=== PATIENT | female | born 1945 | race Caucasian/White ===

== ENCOUNTER 2019-11-09 10:50 | Outpatient (CLI) | payer MEDICARE, MEDICAID ==
[2020-08-27] MEDS ORDERED: LISI2.5T14 PO (11:38)
[2020-08-27] MEDS ORDERED: FURO-149 PO (11:38)
[2020-08-27] MEDS ORDERED: VALA10002 PO (11:38)
[2020-08-27] MEDS ORDERED: DICY20TA12 PO (11:38)
[2020-08-27] MEDS ORDERED: POTA8TAB3 PO (11:38)
[2020-08-27] MEDS ORDERED: NITR1PAT25 TD (11:38)
[2020-08-27] MEDS ORDERED: ACET-3067 PO (11:38)
[2020-08-27] MEDS ORDERED: ASPI-100 PO (11:38)
[2020-08-27] MEDS ORDERED: ATEN-27 PO (11:38)
[2020-08-27] MEDS ORDERED: UBID50TA3 PO (11:38)
[2020-08-27] MEDS ORDERED: NITR0.4T51 SL (11:38)
[2020-08-27] MEDS ORDERED: GABA600T PO (11:38)
[2020-08-27] MEDS ORDERED: CYCL-1 PO (11:38)
[2020-08-27] MEDS ORDERED: TRAM50TA2 PO (11:38)
[2020-08-27] MEDS ORDERED: LINA72CA PO (11:38)
[2020-11-08 12:36] LABS: BASOPHILS % (AUTO) 0 % (0-1); EOSINOPHILS % (AUTO) 0.1 % (0-6); HEMATOCRIT 36.5 % (35.0-45.0); HEMOGLOBIN 12.3 g/dl (12.0-16.0); LYMPHOCYTES # (AUTO) 0.8 X10'3 (1.1-4.8); LYMPHOCYTES % (AUTO) 7.8 % (21-51); MEAN CORPUSCULAR HEMOGLOBIN 34.1 PG (27.0-31.0); MEAN CORPUSCULAR HGB CONC 33.9 g/dL (33.0-36.5); MEAN CORPUSCULAR VOLUME 100.7 FL (78-98); MEAN PLATELET VOLUME 8.6 FL (7.4-10.4); MONOCYTES # (AUTO) 0.7 X10'3 (0-0.9); MONOCYTES % (AUTO) 7.4 % (2-12); NEUTROPHILS # (AUTO) 8.4 X10'3 (1.8-7.7); NEUTROPHILS % (AUTO) 84.7 % (42-75); PLATELET COUNT 126 X10'3 (140-440); RED BLOOD COUNT 3.62 X10'6 (4.20-5.60)
[2020-11-08 12:52] LABS: CLARITY,URINE CLEAR (Clear); COLOR,URINE YELLOW (Yellow); GLUCOSE, URINE NEGATIVE (Neg); KETONES,URINE NEGATIVE (Neg); LEUKOCYTE ESTERASE ,URINE NEGATIVE (Neg); NITRITES, URINE NEGATIVE (Neg); OCCULT BLOOD,URINE NEGATIVE (Neg); PH,URINE 5.5 (4.8-8.0); PROTEIN,URINE NEGATIVE (Neg); UROBILINOGEN,URINE 0.2 E.U/dL (0.2-1.0)
[2020-11-08 12:55] LABS: UA COLLECTION TYPE CLN CATCH MIDSTREAM
[2020-11-08 13:10] LABS: ALANINE AMINOTRANSFERASE 19 U/L (12-78); ALBUMIN 3.8 G/DL (3.4-5.0); ALBUMIN/GLOBULIN RATIO 1.3 (1.1-1.5); ALKALINE PHOSPHATASE 82 IU/L (46-116); ANION GAP 9 (8-16); ASPARTATE AMINO TRANSFERASE 24 U/L (10-37); BILIRUBIN,TOTAL 0.6 MG/DL (0.1-1.0); BLOOD UREA NITROGEN 20 MG/DL (7-18); BUN/CREATININE RATIO 20.2 (6.6-38.0); CALCIUM 8.2 MG/DL (8.5-10.1); CHLORIDE 112 MMOL/L (99-107); CREATININE 0.99 MG/DL (0.40-0.90); GLUCOSE 97 MG/DL (70-104); SODIUM 147 MMOL/L (135-145); TOTAL CARBON DIOXIDE 26.5 MMOL/L (24-32); TOTAL PROTEIN 6.8 G/DL (6.4-8.2); eGFR 55 ML/MIN
[2020-11-08 13:11] LABS: POTASSIUM 4.4 MMOL/L (3.5-5.1)
[2020-11-08] MEDS ORDERED: NYST1000 PO (13:42)
[2020-11-08] MEDS ORDERED: CHOL20004 PO (13:42)
[2020-11-08] MEDS ORDERED: LEVO500T86 PO (13:43)
[2020-11-08] MEDS ORDERED: GRAP50CA PO (13:43)
[2020-11-08] MEDS ORDERED: NITR1PAT63 TD (13:43)
[2020-11-08] MEDS ORDERED: POTA20TA19 PO (13:43)
[2020-11-08] MEDS ORDERED: ATEN-27 PO (13:43)
[2020-11-08] MEDS ORDERED: [UNRECOGNIZED DRUG - OTHER] PO (13:43)
[2020-11-08] MEDS ORDERED: [UNRECOGNIZED DRUG - OTHER] PO (13:43)
== END 2020-11-08 23:59 | disposition home or self-care (01) ==
LOC: PRE-OP 10:50 → EDSTATUS 11-15 08:30
PROVIDERS: ATTEND Internal Medicine Cardiovascular Disease
DX: Z01.818 Encounter for other preprocedural examination (principal); I44.4 Left anterior fascicular block; R94.31 Abnormal electrocardiogram [ECG] [EKG]; R00.8 Other abnormalities of heart beat
CPT/HCPCS: 36415; 80053; 81003; 85025; 86870; 86885; 86900; 86901; 86902; 86905; 86922; 87081; 93005

== ENCOUNTER 2020-08-27 10:50 | Day surgery (SDC) | payer MEDICARE, MEDICAID ==
[2020-08-27] VITALS (9 sets, daily range): BP systolic 120–147; BP diastolic 53–106
[~2020-08-27] VITALS: Ht 157.5 cm; Wt 112.0 kg
[2020-08-27] MEDS ORDERED: diphenhydrAMINE 25mg capsule PO PRN (11:20)
[2020-08-27] MEDS ORDERED: normal saline 1,000 ML IV SCH ×2 (11:20→14:30)
[2020-08-27] MEDS ORDERED: CYCL-1 PO (11:38)
[2020-08-27] MEDS ORDERED: NITR0.4T51 SL (11:38)
[2020-08-27] MEDS ORDERED: UBID50TA3 PO (11:38)
[2020-08-27] MEDS ORDERED: TRAM50TA2 PO (11:38)
[2020-08-27] MEDS ORDERED: LISI2.5T2 PO (11:38)
[2020-08-27] MEDS ORDERED: POTA8TAB3 PO (11:38)
[2020-08-27] MEDS ORDERED: DICY20TA12 PO (11:38)
[2020-08-27] MEDS ORDERED: LINA72CA PO (11:38)
[2020-08-27] MEDS ORDERED: FURO-149 PO (11:38)
[2020-08-27] MEDS ORDERED: ACET-3067 PO (11:38)
[2020-08-27] MEDS ORDERED: ASPI-100 PO (11:38)
[2020-08-27] MEDS ORDERED: NITR1PAT25 TD (11:38)
[2020-08-27] MEDS ORDERED: VALA10002 PO (11:38)
[2020-08-27] MEDS ORDERED: ATEN-27 PO (11:38)
[2020-08-27] MEDS ORDERED: GABA600T PO (11:38)
[2020-08-27 12:12] LABS: BASOPHILS # (AUTO) 0.1 X10'3 (0-0.2); BASOPHILS % (AUTO) 0.9 % (0-1); EOSINOPHILS # (AUTO) 0.1 X10'3 (0-0.9); EOSINOPHILS % (AUTO) 2.1 % (0-6); HEMATOCRIT 38.5 % (35.0-45.0); LYMPHOCYTES # (AUTO) 0.8 X10'3 (1.1-4.8); LYMPHOCYTES % (AUTO) 12.2 % (21-51); MEAN CORPUSCULAR HEMOGLOBIN 33.7 PG (27.0-31.0); MEAN CORPUSCULAR HGB CONC 33.7 g/dL (33.0-36.5); MEAN PLATELET VOLUME 7.8 FL (7.4-10.4); MONOCYTES # (AUTO) 0.5 X10'3 (0-0.9); MONOCYTES % (AUTO) 7.4 % (2-12); NEUTROPHILS # (AUTO) 4.8 X10'3 (1.8-7.7); NEUTROPHILS % (AUTO) 77.4 % (42-75); PLATELET COUNT 130 X10'3 (140-440); RED BLOOD COUNT 3.85 X10'6 (4.20-5.60); RED CELL DISTRIBUTION WIDTH 16.1 % (11.5-14.5); WHITE BLOOD COUNT 6.3 X10'3 (4.5-11.0)
[2020-08-27 12:28] LABS: ALBUMIN 3.6 G/DL (3.4-5.0); ANION GAP 7 (8-16); BLOOD UREA NITROGEN 22 MG/DL (7-18); BUN/CREATININE RATIO 19.6 (6.6-38.0); CALCIUM 8.9 MG/DL (8.5-10.1); CHLORIDE 106 MMOL/L (99-107); CREATININE 1.12 MG/DL (0.40-0.90); GLUCOSE 99 MG/DL (70-104); MAGNESIUM 2.3 MG/DL (1.5-2.4); POTASSIUM 4.4 MMOL/L (3.5-5.1); SODIUM 141 MMOL/L (135-145); TOTAL CARBON DIOXIDE 27.8 MMOL/L (24-32); eGFR 48 ML/MIN
[2020-08-27] MEDS ORDERED: iohexol 350 MG/ML 50ML vial IV ONE (12:47)
[2020-08-27] MEDS ORDERED: LIDOcaine 1% (10mg/ml)w/preservative injection 20ml MDV ONE (12:47)
[2020-08-27] MEDS ORDERED: iohexol 350MG/ML 100ml bottle IV ONE (12:47)
[2020-08-27] MEDS ORDERED: fentaNYL/PF 50MCG/1 ML 2ML syringe ONE (12:47)
[2020-08-27] MEDS ORDERED: midazolam 1 mg/ML 2ml injection ONE ×3 (12:47→13:44)
[2020-08-27] MEDS ORDERED: HYDROmorphone 1 mg/ml syringe ONE (13:38)
[2020-08-27] MEDS ORDERED: ondansetron/PF 4mg/2ml inj IV PRN (14:30)
[2020-08-27] MEDS ORDERED: HYDROcodone/acetaminophen 10/325mg tab PO PRN (14:30)
[2020-08-27] MEDS ORDERED: HYDROcodone/acetaminophen 5mg/325mg tablet PO PRN (14:30)
[2020-08-27] MEDS ORDERED: proCHLORperazine 10 MG/2 ml inj IV PRN (14:30)
== END 2020-08-27 17:35 | disposition home or self-care (01) ==
LOC: SSTAY O 10:50
PROVIDERS: ATTEND Internal Medicine Cardiovascular Disease
DX: I35.0 Nonrheumatic aortic (valve) stenosis (principal); I10 Essential (primary) hypertension; E66.01 Morbid (severe) obesity due to excess calories; I42.7 Cardiomyopathy due to drug and external agent; R06.02 Shortness of breath
CPT/HCPCS: 36415; 80048; 83735; 85025; 85610; 93005; 93454; C1760; C1769; C1894; J1170; J1644; J2001; J2250; J3010; J7030; Q0163; Q9967; 99152; A4620; A6258

== ENCOUNTER → 2020-11-02 | Outpatient (CLI) | payer MEDICARE, MEDICAID ==
[~2020-11-02] VITALS: Ht 157.5 cm; Wt 109.8 kg
[~2020-11-02] MED LIST: ACET-3067 PO; ASPI-100 PO; ATEN-27 PO; CHOL20004 PO; CYCL-1 PO; DICY20TA12 PO; FURO-149 PO; GABA600T PO; GRAP50CA PO; LEVO500T86 PO; LINA72CA PO; LISI2.5T14 PO; NITR0.4T51 SL; NITR1PAT25 TD; NITR1PAT63 TD; NYST1000 PO; POTA20TA19 PO; POTA8TAB3 PO; TRAM50TA2 PO; UBID50TA3 PO; VALA10002 PO; [UNRECOGNIZED DRUG - OTHER] PO; [UNRECOGNIZED DRUG - OTHER] PO; albuterol 2.5 MG/3 ML nebule NEB ONE
[2020-11-02 11:49] LABS: BASOPHILS % (AUTO) 1.1 % (0-1); EOSINOPHILS # (AUTO) 0.4 X10'3 (0-0.9); EOSINOPHILS % (AUTO) 7.5 % (0-6); HEMATOCRIT 34.2 % (35.0-45.0); HEMOGLOBIN 11.6 g/dl (12.0-16.0); LYMPHOCYTES % (AUTO) 21.5 % (21-51); MEAN CORPUSCULAR HEMOGLOBIN 33.8 PG (27.0-31.0); MEAN CORPUSCULAR HGB CONC 33.9 g/dL (33.0-36.5); MEAN CORPUSCULAR VOLUME 99.8 FL (78-98); MEAN PLATELET VOLUME 8.1 FL (7.4-10.4); MONOCYTES # (AUTO) 0.3 X10'3 (0-0.9); MONOCYTES % (AUTO) 6.5 % (2-12); NEUTROPHILS % (AUTO) 63.4 % (42-75); PLATELET COUNT 112 X10'3 (140-440); RED BLOOD COUNT 3.43 X10'6 (4.20-5.60); RED CELL DISTRIBUTION WIDTH 15.7 % (11.5-14.5); WHITE BLOOD COUNT 4.7 X10'3 (4.5-11.0)
[2020-11-02 12:01] LABS: PARTIAL THROMBOPLASTIN TIME 26 SECONDS (22-32)
[2020-11-02 12:03] LABS: ALANINE AMINOTRANSFERASE 13 U/L (12-78); ALBUMIN 3.5 G/DL (3.4-5.0); ALBUMIN/GLOBULIN RATIO 1.3 (1.1-1.5); ALKALINE PHOSPHATASE 93 IU/L (46-116); ASPARTATE AMINO TRANSFERASE 15 U/L (10-37); BILIRUBIN,TOTAL 0.7 MG/DL (0.1-1.0); BLOOD UREA NITROGEN 13 MG/DL (7-18); BUN/CREATININE RATIO 11.5 (6.6-38.0); CALCIUM 8.1 MG/DL (8.5-10.1); CHLORIDE 114 MMOL/L (99-107); CREATININE 1.13 MG/DL (0.40-0.90); GLUCOSE 90 MG/DL (70-104); POTASSIUM 4.3 MMOL/L (3.5-5.1); TOTAL PROTEIN 6.3 G/DL (6.4-8.2); eGFR 47 ML/MIN
[2020-11-02 12:07] LABS: ANION GAP 3 (8-16); SODIUM 147 MMOL/L (135-145)
== END | disposition home or self-care (01) ==
LOC: VAS 10:24
PROVIDERS: ATTEND Internal Medicine Cardiovascular Disease
DX: R16.1 Splenomegaly, not elsewhere classified (principal); R60.1 Generalized edema; I35.1 Nonrheumatic aortic (valve) insufficiency; I71.2 Thoracic aortic aneurysm, without rupture; Z20.822 Contact with and (suspected) exposure to COVID-19
CPT/HCPCS: 36415; 71046; 71275; 74174; 80053; 85025; 85610; 85730; 93880; 94060; 94727; 94729; 94760; Q9967; U0003

== ENCOUNTER 2021-01-10 07:25 | Inpatient (IN) | payer MEDICARE, MEDICAID ==
[2021-01-04 15:41] LABS: BASOPHILS # (AUTO) 0.1 X10'3 (0-0.2); EOSINOPHILS # (AUTO) 0.1 X10'3 (0-0.9); EOSINOPHILS % (AUTO) 2.6 % (0-6); LYMPHOCYTES # (AUTO) 0.8 X10'3 (1.1-4.8); LYMPHOCYTES % (AUTO) 15.2 % (21-51); MEAN CORPUSCULAR HEMOGLOBIN 34.7 PG (27.0-31.0); MEAN CORPUSCULAR HGB CONC 33.4 g/dL (33.0-36.5); MEAN CORPUSCULAR VOLUME 103.9 FL (78-98); MEAN PLATELET VOLUME 8.7 FL (7.4-10.4); MONOCYTES # (AUTO) 0.5 X10'3 (0-0.9); MONOCYTES % (AUTO) 9.8 % (2-12); NEUTROPHILS # (AUTO) 3.8 X10'3 (1.8-7.7); NEUTROPHILS % (AUTO) 71.4 % (42-75); PRE OP HEMATOCRIT 38.6 % (35.0-45.0); PRE OP HEMOGLOBIN 12.9 g/dL (12.0-16.0); PRE OP PLATELET COUNT 150 X10'3 (140-440); RED BLOOD COUNT 3.71 X10'6 (4.20-5.60)
[2021-01-04 15:54] LABS: CLARITY,URINE CLEAR (Clear); COLOR,URINE YELLOW (Yellow); GLUCOSE, URINE NEGATIVE (Neg); KETONES,URINE NEGATIVE (Neg); LEUKOCYTE ESTERASE ,URINE NEGATIVE (Neg); NITRITES, URINE NEGATIVE (Neg); OCCULT BLOOD,URINE NEGATIVE (Neg); PH,URINE 8.5 (4.8-8.0); PROTEIN,URINE NEGATIVE (Neg); UA COLLECTION TYPE CLN CATCH MIDSTREAM; UROBILINOGEN,URINE 0.2 E.U/dL (0.2-1.0)
[2021-01-04 15:56] LABS: PRE OP INR 1.1 INR; PRE OP PROTIME 10.9 SECONDS (9.0-12.0)
[2021-01-04 16:09] LABS: ALBUMIN 3.4 G/DL (3.4-5.0); ALBUMIN/GLOBULIN RATIO 1.1 (1.1-1.5); ALKALINE PHOSPHATASE 90 IU/L (46-116); BLOOD UREA NITROGEN 17 MG/DL (7-18); BUN/CREATININE RATIO 14.9 (6.6-38.0); CALCIUM 8.4 MG/DL (8.5-10.1); CHLORIDE 109 MMOL/L (99-107); CREATININE 1.14 MG/DL (0.40-0.90); PRE OP ALT 14 U/L (30-65); PRE OP ANION GAP 10 (8-16); PRE OP AST 15 U/L (10-37); PRE OP BILIRUB, TOTAL 0.8 MG/DL (0.0-1.0); PRE OP GLUCOSE 128 MG/DL (70-104); PRE OP POTASSIUM 4.4 MMOL/L (3.4-5.1); PRE OP SODIUM 147 MMOL/L (135-145); TOTAL CARBON DIOXIDE 27.7 MMOL/L (24-32); TOTAL PROTEIN 6.6 G/DL (6.4-8.2); eGFR 46 ML/MIN
[~2021-01-10] VITALS: Ht 157.5 cm; Wt 115.5 kg
[2021-01-10] VITALS (11 sets, daily range): BP systolic 113–129; BP diastolic 40–68
[~2021-01-10 07:25] MED LIST changes: -ASPI-100 PO; +DOCUMENT DATE & TIME OF BETA-BLOCKER PO ONE; -LISI2.5T14 PO; -NITR0.4T51 SL; -NITR1PAT25 TD; +POTA-207 PO; -POTA20TA19 PO; -POTA8TAB3 PO; +[UNRECOGNIZED DRUG - OTHER] PO; +[UNRECOGNIZED DRUG - OTHER] TOP; -albuterol 2.5 MG/3 ML nebule NEB ONE; +aspirin 325mg tablet PO ONE; +ceFAZolin 2gm in dextrose, iso 50 ML IV ONE; +famotidine 20mg tablet PO ONE; +ondansetron/PF 4mg/2ml inj IV PRN; +phenylephrine inj 50 MG in normal saline 250ml IV soln 245 ML IV SCH; +protamine sulfate 10mg/ml inj. ONE; +ringers solution, lacted 1,000 ML IV SCH; +vancomycin 1,500 MG in NS 300ml IV soln IV ONE
[2021-01-10] MEDS ORDERED: magnesium 4gm in 100ml NS 100 ML IV PRN ×3 (11:25→14:40)
[2021-01-10] MEDS ORDERED: normal saline 1000ml 1,000 ML IV SCH (11:25)
[2021-01-10] MEDS ORDERED: ondansetron/PF 4mg/2ml inj IV PRN ×3 (11:25→14:30)
[2021-01-10] MEDS ORDERED: hydrALAZINE 20mg/ml inj. IV PRN (11:25)
[2021-01-10] MEDS ORDERED: potassium Cl 20 mEq SR tablet PO PRN ×3 (11:25→14:40)
[2021-01-10] MEDS ORDERED: ALPRAZolam 0.25mg tablet PO PRN (11:25)
[2021-01-10] MEDS ORDERED: diphenhydrAMINE 25mg capsule PO PRN (11:25)
[2021-01-10] MEDS ORDERED: potassium Cl 40MEQ/1/2NS 520ml 520 ML IV PRN ×3 (11:25→14:40)
[2021-01-10] MEDS ORDERED: labetalol 20mg/4ml (5mg/ml) syringe IV PRN (11:25)
[2021-01-10] MEDS ORDERED: pantoprazole 40mg Tablet.DR PO PRN (11:25)
[2021-01-10] MEDS ORDERED: magnesium 2GM in 50ml NS 50 ML IV PRN ×2 (11:25→14:30)
[2021-01-10] MEDS ORDERED: potassium CL 10mEq/100ml bag 100 ML IV PRN ×3 (11:25→14:40)
[2021-01-10] MEDS ORDERED: docusate sod 100mg capsule PO PRN (11:25)
[2021-01-10] MEDS ORDERED: acetaminophen 325mg tablet PO PRN ×4 (11:25→14:40)
[2021-01-10] MEDS ORDERED: iohexol 350 MG/ML 50ML vial IV ONE ×2 (11:31→13:17)
[2021-01-10] MEDS ORDERED: heparin 1,000 UNITS/NS 500ml 1,500 ML ONE (11:31)
[2021-01-10] MEDS ORDERED: iohexol 350MG/ML 100ml bottle IV ONE (11:31)
[2021-01-10] MEDS ORDERED: heparin 1,000 UNITS/NS 500ml 500 ML ONE (11:32)
[2021-01-10] MEDS ORDERED: LIDOcaine 1% (10mg/ml)w/preservative injection 20ml MDV ONE (11:33)
[2021-01-10] MEDS ORDERED: fentaNYL/PF 50MCG/1 ML 2ML syringe ONE ×2 (11:44→14:24)
[2021-01-10] MEDS ORDERED: midazolam 1 mg/ML 2ml injection ONE ×2 (11:44→14:26)
[2021-01-10] MEDS ORDERED: heparin 1,000unit/ml 10ml vial 10 ML ONE ×4 (12:33→14:20)
[2021-01-10] MEDS ORDERED: morphine 2 MG/ML inj. syringe IV PRN (12:45)
[2021-01-10] MEDS ORDERED: morphine 4 MG/ML inj SYRINge IV PRN ×2 (12:45→14:30)
[2021-01-10] MEDS ORDERED: ringers solution, lacted 1,000 ML IV SCH (12:45)
[2021-01-10] MEDS ORDERED: proCHLORperazine 10 MG/2 ml inj IV PRN (12:45)
[2021-01-10] MEDS ORDERED: meperidine/PF 25mg/ml syringe IV PRN ×3 (12:45)
[2021-01-10] MEDS ORDERED: propofol inj 20 ML IV ONE (14:22)
[2021-01-10] MEDS ORDERED: ceFAZolin 1000mg inj ONE (14:28)
[2021-01-10] MEDS ORDERED: niCARDipine-NS 40mg/200ml IVPB 200 ML IV PRN ×2 (14:30→14:40)
[2021-01-10] MEDS ORDERED: mineral oil 133ml enema RC PRN ×2 (14:30→14:40)
[2021-01-10] MEDS ORDERED: HYDROcodone/acetaminophen 10/325mg tab PO PRN (14:30)
[2021-01-10] MEDS ORDERED: sodium phosphate inj. 15 MMOL in dextrose 5%-water 250 ML IV PRN ×2 (14:30→14:40)
[2021-01-10] MEDS ORDERED: normal saline 250ml IV soln 250 ML IV PRN ×2 (14:30→14:40)
[2021-01-10] MEDS ORDERED: sodium phosphate inj. 30 MMOL in dextrose 5%-water 250 ML IV PRN ×2 (14:30→14:40)
[2021-01-10] MEDS ORDERED: dextrose 50%-water 50ml dispensing syringe IV PRN ×2 (14:30→14:40)
[2021-01-10] MEDS ORDERED: magnesium hydroxide 30ml (MOM) UD suspension PO PRN ×2 (14:30→14:40)
[2021-01-10] MEDS ORDERED: nitroGLYCERIN-Tridil 50MG/D5W 250 ML IV PRN (14:30)
[2021-01-10] MEDS ORDERED: Insulin Reg/NS 100units/100mL 100 ML IV SCH (14:30)
[2021-01-10] MEDS ORDERED: bisacodyl 10mg suppository rectal RC PRN ×2 (14:30→14:40)
[2021-01-10] MEDS ORDERED: insulin glargine (Lantus) pen - multi-dose SQ PRN ×2 (14:30→14:40)
[2021-01-10] MEDS ORDERED: metoclopramide 5 mg/ml inj IV PRN (14:30)
[2021-01-10] MEDS ORDERED: pantoprazole 40 MG vial IV ONE ×2 (14:30→14:40)
[2021-01-10] MEDS ORDERED: albumin (Human) 5% 250ml 250 ML IV PRN ×2 (14:30→14:40)
[2021-01-10] MEDS ORDERED: sodium chloride 0.45% 1,000 ML IV SCH (14:30)
[2021-01-10] MEDS ORDERED: magnesium citrate 296ml oral solution PO PRN ×2 (14:30→14:40)
[2021-01-10] MEDS ORDERED: Neutra Phos packet PO PRN ×2 (14:30→14:40)
[2021-01-10] MEDS ORDERED: potassium Cl 20mEq/100mL bag 100 ML IV PRN (14:30)
[2021-01-10] MEDS ORDERED: labetalol 20mg/4ml (5mg/ml) syringe IV ONE (14:31)
[2021-01-10] MEDS ORDERED: rocuronium 10mg/ml inj IV ONE ×2 (14:31)
[2021-01-10] MEDS: Insulin Reg/NS 100units/100mL 100 ML IV SCH (14:40)
[2021-01-10] MEDS: sodium chloride 0.45% 1,000 ML IV SCH (14:40)
[2021-01-10] MEDS ORDERED: nitroPRUSSIDE 0.2mg/mL in NS 100 ML IV SCH (14:40)
[2021-01-10] MEDS ORDERED: potassium Cl 40MEQ/250ML bag 250 ML IV PRN (14:40)
[2021-01-10] MEDS ORDERED: nitroPRUSSIDE 0.2mg/mL in NS 100 ML IV PRN (14:45)
[2021-01-10 15:20] LABS: ABG BASE EXCESS -0.6 mmol/L (-2.0-2.0); ABG OXYGEN SATURATION 97.5 % (94-97); ABG PCO2 (T) 38.3 mmHg (32.0-45.0); ABG PO2 (T) 105.2 mmHg (75.0-100.0); FCOHb 0.3 % (0.0-3.9); FMetHb 0.4 % (0.0-1.5); FO2Hb 96.8 % (94-97); PATIENT TEMPERATURE 36.5; PEEP 5 cm H2O; RESPIRATORY RATE 12 b/min; TIDAL VOLUME 500 mL; TOTAL HEMOGLOBIN 10.5 G/dl (12.0-16.0)
[2021-01-10 15:50] LABS: BASOPHILS % (AUTO) 0.5 % (0-1); EOSINOPHILS # (AUTO) 0.1 X10'3 (0-0.9); EOSINOPHILS % (AUTO) 1.4 % (0-6); HEMATOCRIT 29.1 % (35.0-45.0); LYMPHOCYTES # (AUTO) 0.5 X10'3 (1.1-4.8); LYMPHOCYTES % (AUTO) 6.9 % (21-51); MEAN CORPUSCULAR HEMOGLOBIN 33.2 PG (27.0-31.0); MEAN CORPUSCULAR HGB CONC 34.3 g/dL (33.0-36.5); MEAN CORPUSCULAR VOLUME 96.5 FL (78-98); MEAN PLATELET VOLUME 8.4 FL (7.4-10.4); MONOCYTES # (AUTO) 0.5 X10'3 (0-0.9); MONOCYTES % (AUTO) 6.8 % (2-12); NEUTROPHILS # (AUTO) 5.6 X10'3 (1.8-7.7); NEUTROPHILS % (AUTO) 84.4 % (42-75); PLATELET COUNT 88 X10'3 (140-440); RED BLOOD COUNT 3.02 X10'6 (4.20-5.60); RED CELL DISTRIBUTION WIDTH 18.7 % (11.5-14.5); WHITE BLOOD COUNT 6.6 X10'3 (4.5-11.0)
[2021-01-10] MEDS ORDERED: sod chloride 0.9% 10ml flush syringe IV SCH (16:00)
[2021-01-10] MEDS: ceFAZolin 1GM/D5W- ADD-VANTAGE 50 ML IV SCH (16:00)
[2021-01-10] MEDS ORDERED: cefazolin/dext.iso 2gm/50ml 50 ML IV SCH (16:00)
[2021-01-10 16:01] LABS: PARTIAL THROMBOPLASTIN TIME 29 SECONDS (22-32)
[2021-01-10 16:10] LABS: ALANINE AMINOTRANSFERASE 10 U/L (12-78); ALBUMIN 2.6 G/DL (3.4-5.0); ALBUMIN/GLOBULIN RATIO 1.2 (1.1-1.5); ALKALINE PHOSPHATASE 61 IU/L (46-116); ANION GAP 9 (8-16); ASPARTATE AMINO TRANSFERASE 20 U/L (10-37); BILIRUBIN,TOTAL 0.7 MG/DL (0.1-1.0); BLOOD UREA NITROGEN 16 MG/DL (7-18); BUN/CREATININE RATIO 22.9 (6.6-38.0); CALCIUM 7.5 MG/DL (8.5-10.1); CHLORIDE 115 MMOL/L (99-107); GLUCOSE 129 MG/DL (70-104); MAGNESIUM 1.9 MG/DL (1.5-2.4); PHOSPHORUS 2.9 MG/DL (2.3-4.5); POTASSIUM 3.7 MMOL/L (3.5-5.1); SODIUM 149 MMOL/L (135-145); TOTAL CARBON DIOXIDE 25.3 MMOL/L (24-32); TOTAL PROTEIN 4.8 G/DL (6.4-8.2); eGFR 82 ML/MIN
[2021-01-10] MEDS: propofol 1000mg/100ml bottle 100 ML IV PRN ×4 (16:17→22:42)
[2021-01-10] MEDS: morphine 4 MG/ML inj SYRINge IV PRN (16:18)
[2021-01-10] MEDS: nitroPRUSSIDE 0.2mg/mL in NS 100 ML IV SCH ×2 (16:19→21:59)
[2021-01-10] MEDS: cefazolin/dext.iso 2gm/50ml 50 ML IV SCH (17:29)
[2021-01-10] MEDS: nitroPRUSSIDE (NIPRIDE) (200MCG/ML) 100ML Drip IV SCH ×2 (18:31→20:14)
[2021-01-10] MEDS: dexmedetomidine/D5W 100mL 100 ML IV SCH (19:43)
[2021-01-10] MEDS ORDERED: sennosides/docusate sodium tablet PO SCH (20:00)
[2021-01-10] MEDS: sennosides/docusate sodium tablet PO SCH (20:00)
[2021-01-10] MEDS ORDERED: mupirocin 2% ointment 22GM NS SCH (20:00)
[2021-01-10] MEDS ORDERED: vancomycin/NS 1 GM ADD-VANTAGE 250 ML IV SCH (20:00)
[2021-01-10] MEDS ORDERED: atorvastatin 10mg tablet PO SCH (21:00)
[2021-01-10] MEDS: atorvastatin 10mg tablet PO SCH (21:00)
[2021-01-10 21:28] LABS: PLATELET ESTIMATE DECREASED
[2021-01-10 21:29] LABS: ANISOCYTOSIS 2+; POLYCHROMASIA FEW
[2021-01-10 21:30] LABS: BURR CELLS FEW
[2021-01-10] MEDS: mupirocin 2% nasal ointment 1gm UD NS SCH (22:02)
[2021-01-10 22:54] LABS: MAGNESIUM 1.9 MG/DL (1.5-2.4); POTASSIUM 3.6 MMOL/L (3.5-5.1)
[2021-01-10] MEDS: potassium Cl 20mEq/100mL bag 100 ML IV PRN (23:05)
[2021-01-11] VITALS (20 sets, daily range): BP systolic 101–136; BP diastolic 44–65
[2021-01-11] MEDS: ceFAZolin 1GM/D5W- ADD-VANTAGE 50 ML IV SCH
[2021-01-11] MEDS: dexmedetomidine/D5W 100mL 100 ML IV SCH ×4 (00:08→21:21)
[2021-01-11] MEDS: potassium Cl 40MEQ/250ML bag 250 ML IV PRN (00:08)
[2021-01-11] MEDS: cefazolin/dext.iso 2gm/50ml 50 ML IV SCH ×3 (00:31→19:59)
[2021-01-11] MEDS: propofol 1000mg/100ml bottle 100 ML IV PRN ×2 (01:42→09:43)
[2021-01-11] MEDS: nitroPRUSSIDE sod inj. 50 MG in dextrose 5%-water 248 ML IV SCH ×2 (01:48→14:41)
[2021-01-11 03:12] LABS: ABG BASE EXCESS -1.1 mmol/L (-2.0-2.0); ABG HCO3 22.8 mmol/L (22.0-26.0); ABG OXYGEN SATURATION 98.1 % (94-97); ABG PCO2 (T) 34.9 mmHg (32.0-45.0); ABG PO2 (T) 122.7 mmHg (75.0-100.0); FCOHb 0.3 % (0.0-3.9); FMetHb 0.3 % (0.0-1.5); FO2Hb 97.5 % (94-97); PATIENT TEMPERATURE 36.9; PEEP 5 cm H2O; RESPIRATORY RATE 12 b/min; TIDAL VOLUME 500 mL; TOTAL HEMOGLOBIN 11.8 G/dl (12.0-16.0)
[2021-01-11 04:14] LABS: BASOPHILS % (AUTO) 0.5 % (0-1); EOSINOPHILS % (AUTO) 0.5 % (0-6); HEMATOCRIT 32.9 % (35.0-45.0); HEMOGLOBIN 11.5 g/dl (12.0-16.0); LYMPHOCYTES # (AUTO) 0.3 X10'3 (1.1-4.8); LYMPHOCYTES % (AUTO) 3.8 % (21-51); MEAN CORPUSCULAR HEMOGLOBIN 33.4 PG (27.0-31.0); MEAN CORPUSCULAR HGB CONC 34.9 g/dL (33.0-36.5); MEAN CORPUSCULAR VOLUME 95.9 FL (78-98); MEAN PLATELET VOLUME 7.9 FL (7.4-10.4); MONOCYTES # (AUTO) 0.7 X10'3 (0-0.9); MONOCYTES % (AUTO) 9.8 % (2-12); NEUTROPHILS # (AUTO) 6.1 X10'3 (1.8-7.7); NEUTROPHILS % (AUTO) 85.4 % (42-75); PLATELET COUNT 113 X10'3 (140-440); RED BLOOD COUNT 3.43 X10'6 (4.20-5.60); RED CELL DISTRIBUTION WIDTH 18.8 % (11.5-14.5); WHITE BLOOD COUNT 7.2 X10'3 (4.5-11.0)
[2021-01-11 04:25] LABS: PARTIAL THROMBOPLASTIN TIME 25 SECONDS (22-32)
[2021-01-11 04:28] LABS: ALANINE AMINOTRANSFERASE 17 U/L (12-78); ALBUMIN 2.9 G/DL (3.4-5.0); ALKALINE PHOSPHATASE 67 IU/L (46-116); ANION GAP 11 (8-16); ASPARTATE AMINO TRANSFERASE 27 U/L (10-37); BILIRUBIN,TOTAL 0.7 MG/DL (0.1-1.0); BLOOD UREA NITROGEN 14 MG/DL (7-18); BUN/CREATININE RATIO 16.7 (6.6-38.0); CALCIUM 7.8 MG/DL (8.5-10.1); CHLORIDE 113 MMOL/L (99-107); CREATININE 0.84 MG/DL (0.40-0.90); GLUCOSE 140 MG/DL (70-104); MAGNESIUM 2.7 MG/DL (1.5-2.4); PHOSPHORUS 3.1 MG/DL (2.3-4.5); POTASSIUM 4.9 MMOL/L (3.5-5.1); SODIUM 146 MMOL/L (135-145); TOTAL CARBON DIOXIDE 22.5 MMOL/L (24-32); TOTAL PROTEIN 5.7 G/DL (6.4-8.2); TRIGLYCERIDES 66 MG/DL (20-135); eGFR 66 ML/MIN
[2021-01-11] MEDS: metoprolol tartrate 12.5mg (1/2 tablet) PO SCH ×2 (08:00→10:45)
[2021-01-11] MEDS ORDERED: metoprolol tartrate 12.5mg (1/2 tablet) PO SCH (08:00)
[2021-01-11] MEDS ORDERED: aspirin 81mg tab.chew PO SCH (08:30)
[2021-01-11] MEDS: sennosides/docusate sodium tablet PO SCH ×2 (09:56→21:15)
[2021-01-11] MEDS: mupirocin 2% nasal ointment 1gm UD NS SCH ×2 (09:56→21:15)
[2021-01-11] MEDS: aspirin 325mg tablet, delayed-release (Ecotrin) PO SCH (09:56)
[2021-01-11] MEDS ORDERED: iohexol 350MG/ML 100ml bottle IV ONE (11:28)
--- NOTE | 2021-01-11 12:35 | NUR ---
Nutrition Consult: Pt intubated s/p TAVR remains intubated at this time unable to protect airway on SBT per RT note. MAP 71 this AM w/ OG in place. TF recs below in case prolonged intubation. Noted PRN propofol at 3.48ml/hr this AM providing 92 kcals/day in addition to nitroprusside/D5 at 24.36ml/hr providing 99 kcals/day. No BM though just admit yesterday. Will continue to monitor for nutrition intervention needs. Rec: 1. Consider TF if prolonged intubation post-op; IF TF Vital High Protein at 65ml/hr goal to provide 1560 ml volume/day, 1560 kcals, 1310ml water, and 137g protein. 2. IF TF; additional water flush 200ml Q4H 3. IF TF; PALB Q /; daily wts 4. routine bowel care 5. upon extubation; advance diet to heart healthy as medically indicated Addendum: 01/11/21 at [address] Amended: Links added. Addendum: 01/11/21 at [address] Rec: 1. Consider TF if prolonged intubation post-op; IF TF off propofol and D5-containing meds: Vital High Protein at 65ml/hr goal to provide 1560 ml volume/day, 1560 kcals, 1310ml water, and 137g protein. 2. IF TF; additional water flush 200ml Q4H 3. IF TF; PALB Q /; daily wts 4. routine bowel care 5. upon extubation; advance diet to heart healthy as medically indicated
--- NOTE | 2021-01-11 18:30 | NUR ---
Patient in room ICU 2046. I have received report from Parker Ace and had the opportunity to ask questions and assume patient care.
--- NOTE | 2021-01-11 19:49 | NUR ---
Pharmacy called d/t 1600 Cefazolin not being administered. Pharmacist stated to give 1600 dose now and give 0000 dose a little late. Will continue to monitor.
[2021-01-11] MEDS: atorvastatin 10mg tablet PO SCH (21:15)
[2021-01-12] VITALS (22 sets, daily range): BP systolic 105–185; BP diastolic 44–119
[2021-01-12] MEDS: Insulin Reg/NS 100units/100mL 100 ML IV SCH
[2021-01-12] MEDS: dexmedetomidine/D5W 100mL 100 ML IV SCH ×9 (00:16→19:38)
[2021-01-12] MEDS: cefazolin/dext.iso 2gm/50ml 50 ML IV SCH (01:58)
[2021-01-12 03:07] LABS: BASOPHILS % (AUTO) 0.3 % (0-1); EOSINOPHILS # (AUTO) 0.1 X10'3 (0-0.9); EOSINOPHILS % (AUTO) 1.1 % (0-6); HEMATOCRIT 29.6 % (35.0-45.0); HEMOGLOBIN 10.2 g/dl (12.0-16.0); LYMPHOCYTES # (AUTO) 0.4 X10'3 (1.1-4.8); LYMPHOCYTES % (AUTO) 6.1 % (21-51); MEAN CORPUSCULAR HEMOGLOBIN 33.2 PG (27.0-31.0); MEAN CORPUSCULAR HGB CONC 34.4 g/dL (33.0-36.5); MEAN CORPUSCULAR VOLUME 96.7 FL (78-98); MEAN PLATELET VOLUME 8.5 FL (7.4-10.4); MONOCYTES # (AUTO) 0.7 X10'3 (0-0.9); MONOCYTES % (AUTO) 10.8 % (2-12); NEUTROPHILS # (AUTO) 5.5 X10'3 (1.8-7.7); NEUTROPHILS % (AUTO) 81.7 % (42-75); PLATELET COUNT 108 X10'3 (140-440); RED BLOOD COUNT 3.06 X10'6 (4.20-5.60); RED CELL DISTRIBUTION WIDTH 18.6 % (11.5-14.5); WHITE BLOOD COUNT 6.7 X10'3 (4.5-11.0)
[2021-01-12] MEDS: nitroPRUSSIDE 0.2mg/mL in NS 100 ML IV SCH ×3 (03:10→23:40)
[2021-01-12 03:19] LABS: ALBUMIN 2.3 G/DL (3.4-5.0); ANION GAP 9 (8-16); BLOOD UREA NITROGEN 13 MG/DL (7-18); BUN/CREATININE RATIO 17.1 (6.6-38.0); CALCIUM 7.8 MG/DL (8.5-10.1); CHLORIDE 110 MMOL/L (99-107); CREATININE 0.76 MG/DL (0.40-0.90); GLUCOSE 163 MG/DL (70-104); MAGNESIUM 2.6 MG/DL (1.5-2.4); PHOSPHORUS 3.2 MG/DL (2.3-4.5); POTASSIUM 4.2 MMOL/L (3.5-5.1); SODIUM 143 MMOL/L (135-145); TOTAL CARBON DIOXIDE 23.8 MMOL/L (24-32); eGFR 74 ML/MIN
[2021-01-12 03:21] LABS: ABG BASE EXCESS -1.5 mmol/L (-2.0-2.0); ABG HCO3 22.2 mmol/L (22.0-26.0); ABG PCO2 (T) 32.6 mmHg (32.0-45.0); ABG PO2 (T) 78.3 mmHg (75.0-100.0); FCOHb 0.3 % (0.0-3.9); FMetHb 0.2 % (0.0-1.5); FO2Hb 95.5 % (94-97); PATIENT TEMPERATURE 36.3; PEEP 5 cm H2O; RESPIRATORY RATE 12 b/min; TIDAL VOLUME 500 mL; TOTAL HEMOGLOBIN 10.7 G/dl (12.0-16.0)
[2021-01-12 04:33] LABS: ANISOCYTOSIS 2+; ELLIPTOCYTES FEW; PLATELET ESTIMATE DECREASED
[2021-01-12 04:34] LABS: ROULEAUX 1+
--- NOTE | 2021-01-12 06:43 | NUR ---
Problems reprioritized. Patient report given, questions answered & plan of care reviewed with Parker KING.
[2021-01-12] MEDS: pantoprazole 40mg Tablet.DR PO SCH (07:22)
[2021-01-12] MEDS: aspirin 325mg tablet, delayed-release (Ecotrin) PO SCH (07:22)
[2021-01-12] MEDS: mupirocin 2% nasal ointment 1gm UD NS SCH (07:23)
[2021-01-12] MEDS: metoprolol tartrate 12.5mg (1/2 tablet) PO SCH (07:23)
[2021-01-12] MEDS: sennosides/docusate sodium tablet PO SCH ×2 (07:29→19:39)
[2021-01-12] MEDS ORDERED: pantoprazole 40mg Tablet.DR PO SCH (07:30)
[2021-01-12] MEDS: LINACLOTIDE 72 MCG PO SCH (08:00)
[2021-01-12 10:48] LABS: ABG BASE EXCESS 0.2 mmol/L (-2.0-2.0); ABG HCO3 24.3 mmol/L (22.0-26.0); ABG PCO2 (T) 37.2 mmHg (32.0-45.0); ABG PO2 (T) 94.5 mmHg (75.0-100.0); FCOHb 0.1 % (0.0-3.9); FMetHb 0.3 % (0.0-1.5); FO2Hb 96.6 % (94-97); PEEP 5 cm H2O; RESPIRATORY RATE 12 b/min; TIDAL VOLUME 500 mL; TOTAL HEMOGLOBIN 11.4 G/dl (12.0-16.0)
[2021-01-12] MEDS: lisinopril 20mg tablet PO SCH ×2 (11:00→19:39)
[2021-01-12] MEDS ORDERED: niCARdipine I.V. 50 MG in normal saline 250ml IV soln 230 ML IV SCH (11:05)
[2021-01-12] MEDS: niCARDipine-NS 40mg/200ml IVPB IV SCH ×2 (12:27→19:36)
[2021-01-12] MEDS: propofol 1000mg/100ml bottle 100 ML IV PRN ×2 (14:40→19:37)
[2021-01-12] MEDS: albuterol 2.5 MG/3 ML nebule NEB SCH ×2 (15:30→22:11)
[2021-01-12] MEDS: acetylcysteine 200 MG/ml 4ml vial INH SCH ×2 (15:30→22:11)
--- NOTE | 2021-01-12 15:35 | NUR ---
From Dr Cabezas, Please have [employer] law clerk manage all ventilator issues only while in house only, if not physically present defer to Dr Cabezas. otherwise all cares call dr Cabezas.
[2021-01-12] MEDS: sodium chloride 0.45% 1,000 ML IV SCH (19:36)
[2021-01-12] MEDS: atorvastatin 10mg tablet PO SCH (19:39)
[2021-01-12] MEDS: dexmedetomidin/NS 400mcg/100ml 100 ML IV SCH (21:53)
[2021-01-13] VITALS (22 sets, daily range): BP systolic 101–132; BP diastolic 42–78
[2021-01-13] MEDS: dexmedetomidin/NS 400mcg/100ml 100 ML IV SCH ×5 (00:28→20:58)
[2021-01-13] MEDS: niCARDipine-NS 40mg/200ml IVPB IV SCH ×3 (02:42→19:30)
[2021-01-13 02:47] LABS: ABG HCO3 22.1 mmol/L (22.0-26.0); ABG OXYGEN SATURATION 95.9 % (94-97); ABG PCO2 (T) 30.9 mmHg (32.0-45.0); ABG PO2 (T) 78.4 mmHg (75.0-100.0); FCOHb 0.3 % (0.0-3.9); FMetHb 0.3 % (0.0-1.5); FO2Hb 95.3 % (94-97); PATIENT TEMPERATURE 36.5; PEEP 5 cm H2O; RESPIRATORY RATE 12 b/min; TIDAL VOLUME 500 mL; TOTAL HEMOGLOBIN 11.6 G/dl (12.0-16.0)
[2021-01-13] MEDS: acetylcysteine 200 MG/ml 4ml vial INH SCH ×4 (02:52→21:03)
[2021-01-13] MEDS: albuterol 2.5 MG/3 ML nebule NEB SCH ×4 (02:52→21:03)
[2021-01-13 05:51] LABS: BASOPHILS % (AUTO) 0.7 % (0-1); EOSINOPHILS # (AUTO) 0.1 X10'3 (0-0.9); HEMATOCRIT 32.2 % (35.0-45.0); LYMPHOCYTES # (AUTO) 0.4 X10'3 (1.1-4.8); LYMPHOCYTES % (AUTO) 6.5 % (21-51); MEAN CORPUSCULAR HEMOGLOBIN 32.9 PG (27.0-31.0); MEAN CORPUSCULAR HGB CONC 34.2 g/dL (33.0-36.5); MEAN CORPUSCULAR VOLUME 96.2 FL (78-98); MEAN PLATELET VOLUME 8.9 FL (7.4-10.4); MONOCYTES # (AUTO) 0.5 X10'3 (0-0.9); MONOCYTES % (AUTO) 8.1 % (2-12); NEUTROPHILS # (AUTO) 5.2 X10'3 (1.8-7.7); NEUTROPHILS % (AUTO) 83.7 % (42-75); PLATELET COUNT 108 X10'3 (140-440); RED BLOOD COUNT 3.35 X10'6 (4.20-5.60); RED CELL DISTRIBUTION WIDTH 17.7 % (11.5-14.5); WHITE BLOOD COUNT 6.2 X10'3 (4.5-11.0)
--- NOTE | 2021-01-13 06:49 | NUR ---
Report given to Zoë/janneth
[2021-01-13] MEDS: aspirin 325mg tablet, delayed-release (Ecotrin) PO SCH (07:57)
[2021-01-13] MEDS: lisinopril 20mg tablet PO SCH (07:58)
[2021-01-13] MEDS: pantoprazole 40mg Tablet.DR PO SCH (07:59)
[2021-01-13] MEDS: LINACLOTIDE 72 MCG PO SCH (07:59)
[2021-01-13] MEDS: sennosides/docusate sodium tablet PO SCH (07:59)
[2021-01-13 08:09] LABS: MAGNESIUM 2.2 MG/DL (1.5-2.4); PHOSPHORUS 2.3 MG/DL (2.3-4.5)
[2021-01-13] MEDS: Insulin Reg/NS 100units/100mL 100 ML IV SCH (09:20)
[2021-01-13 09:42] LABS: ABG BASE EXCESS -2.3 mmol/L (-2.0-2.0); ABG OXYGEN SATURATION 95.8 % (94-97); ABG PO2 (T) 82.1 mmHg (75.0-100.0); FCOHb 0.3 % (0.0-3.9); FMetHb 0.3 % (0.0-1.5); FO2Hb 95.2 % (94-97); PEEP 5 cm H2O; TIDAL VOLUME 400 mL; TOTAL HEMOGLOBIN 11.7 G/dl (12.0-16.0)
[2021-01-13] MEDS ORDERED: furosemide 20 MG/2 ML vial IV ONE ×2 (09:50→20:20)
[2021-01-13] MEDS: nitroPRUSSIDE 0.2mg/mL in NS 100 ML IV SCH ×2 (10:20→22:40)
--- NOTE | 2021-01-13 10:41 | NUR ---
TF consult: Per RN, pt has already started TF per MD using Vital High Protein w/ current rate at 30ml/hr. Pt currently on Propofol at 2.88ml/hr providing 76kcals/d. See TF recs below, will continue to monitor and adjust needs as medically indicated. Rec: 1. Continuous TF using Vital High Protein at 65ml/hr goal to provide 1560 ml volume/day, 1560 kcals, 1310ml water, and 137g protein. 2. Additional water flush 200ml Q4H 3. PALB Q /; daily wts 4. routine bowel care 5. upon extubation; advance diet to heart healthy as medically indicated Addendum: 01/13/21 at [address] Amended: Links added.
[2021-01-13 11:24] LABS: BASOPHILS % (AUTO) 0.3 % (0-1); EOSINOPHILS % (AUTO) 0.3 % (0-6); HEMATOCRIT 31.6 % (35.0-45.0); HEMOGLOBIN 10.9 g/dl (12.0-16.0); LYMPHOCYTES # (AUTO) 0.3 X10'3 (1.1-4.8); LYMPHOCYTES % (AUTO) 4.3 % (21-51); MEAN CORPUSCULAR HEMOGLOBIN 33.2 PG (27.0-31.0); MEAN CORPUSCULAR HGB CONC 34.6 g/dL (33.0-36.5); MEAN CORPUSCULAR VOLUME 95.7 FL (78-98); MEAN PLATELET VOLUME 8.5 FL (7.4-10.4); MONOCYTES # (AUTO) 0.5 X10'3 (0-0.9); MONOCYTES % (AUTO) 8.1 % (2-12); NEUTROPHILS # (AUTO) 5.9 X10'3 (1.8-7.7); PLATELET COUNT 116 X10'3 (140-440); RED CELL DISTRIBUTION WIDTH 17.5 % (11.5-14.5); WHITE BLOOD COUNT 6.7 X10'3 (4.5-11.0)
[2021-01-13 11:28] LABS: ALBUMIN 2.3 G/DL (3.4-5.0); ANION GAP 8 (8-16); BLOOD UREA NITROGEN 15 MG/DL (7-18); BUN/CREATININE RATIO 22.4 (6.6-38.0); CALCIUM 7.6 MG/DL (8.5-10.1); CHLORIDE 112 MMOL/L (99-107); CREATININE 0.67 MG/DL (0.40-0.90); GLUCOSE 149 MG/DL (70-104); POTASSIUM 3.6 MMOL/L (3.5-5.1); SODIUM 144 MMOL/L (135-145); TOTAL CARBON DIOXIDE 24.4 MMOL/L (24-32); eGFR 86 ML/MIN
[2021-01-13] MEDS ORDERED: Neutra Phos packet OGT PRN (11:44)
[2021-01-13] MEDS: cefazolin/dext.iso 2gm/50ml 50 ML IV SCH ×2 (12:28→20:59)
[2021-01-13] MEDS: potassium Cl 40MEQ/250ML bag 250 ML IV PRN (15:07)
--- NOTE | 2021-01-13 18:30 | NUR ---
Patient in room ICU 2046. I have received report from CHRISTINE Camp and had the opportunity to ask questions and assume patient care.
[2021-01-13] MEDS: propofol 1000mg/100ml bottle 100 ML IV PRN (20:57)
[2021-01-13] MEDS: atorvastatin 10mg tablet OGT SCH (20:58)
[2021-01-13] MEDS: lisinopril 20mg tablet OGT SCH (20:58)
[2021-01-13] MEDS: sennosides/docusate sodium tablet OGT SCH (20:59)
[2021-01-14] VITALS (26 sets, daily range): BP systolic 94–159; BP diastolic 45–92
[2021-01-14] MEDS: acetaminophen 325mg tablet PO PRN ×3 (00:58→20:41)
[2021-01-14] MEDS: dexmedetomidin/NS 400mcg/100ml 100 ML IV SCH ×2 (00:58→05:07)
[2021-01-14 02:20] LABS: BASOPHILS % (AUTO) 0.2 % (0-1); EOSINOPHILS % (AUTO) 0.6 % (0-6); HEMATOCRIT 30.7 % (35.0-45.0); HEMOGLOBIN 10.7 g/dl (12.0-16.0); LYMPHOCYTES # (AUTO) 0.3 X10'3 (1.1-4.8); LYMPHOCYTES % (AUTO) 4.2 % (21-51); MEAN CORPUSCULAR HEMOGLOBIN 33.7 PG (27.0-31.0); MEAN CORPUSCULAR HGB CONC 34.9 g/dL (33.0-36.5); MEAN CORPUSCULAR VOLUME 96.4 FL (78-98); MEAN PLATELET VOLUME 8.4 FL (7.4-10.4); MONOCYTES # (AUTO) 0.6 X10'3 (0-0.9); MONOCYTES % (AUTO) 8.4 % (2-12); NEUTROPHILS # (AUTO) 6.4 X10'3 (1.8-7.7); NEUTROPHILS % (AUTO) 86.6 % (42-75); PLATELET COUNT 124 X10'3 (140-440); RED BLOOD COUNT 3.18 X10'6 (4.20-5.60); RED CELL DISTRIBUTION WIDTH 17.8 % (11.5-14.5); WHITE BLOOD COUNT 7.3 X10'3 (4.5-11.0)
[2021-01-14 02:37] LABS: ANION GAP 4 (8-16); BLOOD UREA NITROGEN 18 MG/DL (7-18); BUN/CREATININE RATIO 22.2 (6.6-38.0); CALCIUM 7.7 MG/DL (8.5-10.1); CHLORIDE 110 MMOL/L (99-107); CREATININE 0.81 MG/DL (0.40-0.90); GLUCOSE 152 MG/DL (70-104); POTASSIUM 3.5 MMOL/L (3.5-5.1); SODIUM 137 MMOL/L (135-145); TOTAL CARBON DIOXIDE 22.6 MMOL/L (24-32); eGFR 69 ML/MIN
[2021-01-14 02:38] LABS: ALANINE AMINOTRANSFERASE 8 U/L (12-78); ALBUMIN 2.2 G/DL (3.4-5.0); ALBUMIN/GLOBULIN RATIO 0.7 (1.1-1.5); ALKALINE PHOSPHATASE 72 IU/L (46-116); ASPARTATE AMINO TRANSFERASE 9 U/L (10-37); BILIRUBIN,TOTAL 0.5 MG/DL (0.1-1.0); MAGNESIUM 2.2 MG/DL (1.5-2.4); PHOSPHORUS 3.4 MG/DL (2.3-4.5); TOTAL PROTEIN 5.4 G/DL (6.4-8.2)
[2021-01-14 02:39] LABS: PREALBUMIN 11.9 MG/DL (19-36)
[2021-01-14 03:08] LABS: ABG BASE EXCESS -1.4 mmol/L (-2.0-2.0); ABG HCO3 21.1 mmol/L (22.0-26.0); ABG OXYGEN SATURATION 96.7 % (94-97); ABG PCO2 (T) 30.5 mmHg (32.0-45.0); FCOHb 0.3 % (0.0-3.9); FMetHb 0.3 % (0.0-1.5); FO2Hb 96.1 % (94-97); PATIENT TEMPERATURE 38.2; PEEP 8 cm H2O; RESPIRATORY RATE 12 b/min; TIDAL VOLUME 500 mL; TOTAL HEMOGLOBIN 12.2 G/dl (12.0-16.0)
[2021-01-14] MEDS: acetylcysteine 200 MG/ml 4ml vial INH SCH ×4 (03:08→21:16)
[2021-01-14] MEDS: albuterol 2.5 MG/3 ML nebule NEB SCH ×4 (03:08→21:16)
[2021-01-14] MEDS: niCARDipine-NS 40mg/200ml IVPB IV SCH ×4 (03:30→22:39)
[2021-01-14] MEDS: potassium Cl 20mEq/100mL bag 100 ML IV PRN (04:02)
[2021-01-14] MEDS: potassium Cl 40MEQ/250ML bag 250 ML IV PRN (05:08)
--- NOTE | 2021-01-14 06:47 | NUR ---
Problems reprioritized. Patient report given, questions answered & plan of care reviewed with CHRISTINE ordoñez.
[2021-01-14] MEDS: magnesium 2GM in 50ml NS 50 ML IV PRN (07:44)
[2021-01-14] MEDS: LINACLOTIDE 72 MCG OGT SCH (08:00)
[2021-01-14] MEDS: sennosides/docusate sodium tablet OGT SCH ×2 (08:00→20:00)
[2021-01-14] MEDS: pantoprazole 40mg Tablet.DR PO SCH (08:06)
[2021-01-14] MEDS: aspirin 325mg tablet, delayed-release (Ecotrin) PO SCH (08:06)
[2021-01-14] MEDS: cefazolin/dext.iso 2gm/50ml 50 ML IV SCH ×2 (08:06→20:54)
[2021-01-14] MEDS: lisinopril 20mg tablet OGT SCH ×2 (08:07→20:41)
[2021-01-14] MEDS: nitroPRUSSIDE 0.2mg/mL in NS 100 ML IV SCH ×2 (10:10→21:40)
[2021-01-14] MEDS: sodium chloride 0.45% 1,000 ML IV SCH (14:40)
--- NOTE | 2021-01-14 18:30 | NUR ---
Patient in room ICU 2046. I have received report from Werner KING and had the opportunity to ask questions and assume patient care.
[2021-01-14] MEDS: Insulin Reg/NS 100units/100mL 100 ML IV SCH (18:40)
--- NOTE | 2021-01-14 20:00 | NUR ---
Dr Cabezas by to see patient. New orders received to restart Nitro drip due to increase in BP. Additional orders received.
--- NOTE | 2021-01-14 20:00 | NUR ---
bedside swallow done by Nursing per Dr Cabezas. Patient passed bedside nursing swallow. orders in for bedside eval by speech
[2021-01-14] MEDS ORDERED: metoprolol tartrate 25mg tablet PO ONE (20:25)
[2021-01-14] MEDS ORDERED: furosemide 20 MG/2 ML vial IV ONE (20:25)
[2021-01-14] MEDS: atorvastatin 10mg tablet OGT SCH (20:41)
[2021-01-14] MEDS: HYDROcodone/acetaminophen 10/325mg tab PO PRN (22:46)
--- NOTE | 2021-01-14 23:00 | NUR ---
patient complaining of pain. Medicated with Patterson per md order. Patient became nauseated and medicated with zofran , per md order.
[2021-01-15] VITALS (24 sets, daily range): BP systolic 120–161; BP diastolic 42–72
[2021-01-15] MEDS: ondansetron/PF 4mg/2ml inj IV PRN ×3 (00:35→22:45)
[2021-01-15] MEDS: albuterol 2.5 MG/3 ML nebule NEB SCH (02:00)
[2021-01-15 02:38] LABS: BASOPHILS % (AUTO) 0.4 % (0-1); EOSINOPHILS % (AUTO) 0.7 % (0-6); HEMATOCRIT 30.1 % (35.0-45.0); HEMOGLOBIN 10.4 g/dl (12.0-16.0); LYMPHOCYTES # (AUTO) 0.3 X10'3 (1.1-4.8); LYMPHOCYTES % (AUTO) 4.8 % (21-51); MEAN CORPUSCULAR HEMOGLOBIN 33.6 PG (27.0-31.0); MEAN CORPUSCULAR HGB CONC 34.4 g/dL (33.0-36.5); MEAN CORPUSCULAR VOLUME 97.6 FL (78-98); MONOCYTES # (AUTO) 0.7 X10'3 (0-0.9); MONOCYTES % (AUTO) 9.4 % (2-12); NEUTROPHILS # (AUTO) 6.1 X10'3 (1.8-7.7); NEUTROPHILS % (AUTO) 84.7 % (42-75); PLATELET COUNT 129 X10'3 (140-440); RED BLOOD COUNT 3.08 X10'6 (4.20-5.60); RED CELL DISTRIBUTION WIDTH 17.7 % (11.5-14.5); WHITE BLOOD COUNT 7.2 X10'3 (4.5-11.0)
[2021-01-15 02:52] LABS: ALANINE AMINOTRANSFERASE 11 U/L (12-78); ALBUMIN 2.4 G/DL (3.4-5.0); ALBUMIN/GLOBULIN RATIO 0.8 (1.1-1.5); ALKALINE PHOSPHATASE 93 IU/L (46-116); ANION GAP 9 (8-16); ASPARTATE AMINO TRANSFERASE 20 U/L (10-37); BILIRUBIN,TOTAL 0.8 MG/DL (0.1-1.0); BLOOD UREA NITROGEN 16 MG/DL (7-18); CALCIUM 7.6 MG/DL (8.5-10.1); CHLORIDE 113 MMOL/L (99-107); CREATININE 0.84 MG/DL (0.40-0.90); GLUCOSE 100 MG/DL (70-104); MAGNESIUM 2.4 MG/DL (1.5-2.4); PHOSPHORUS 3.2 MG/DL (2.3-4.5); POTASSIUM 3.8 MMOL/L (3.5-5.1); SODIUM 146 MMOL/L (135-145); TOTAL CARBON DIOXIDE 23.8 MMOL/L (24-32); TOTAL PROTEIN 5.6 G/DL (6.4-8.2); eGFR 66 ML/MIN
[2021-01-15] MEDS: acetylcysteine 200 MG/ml 4ml vial INH SCH (03:00)
[2021-01-15] MEDS: metoclopramide 5 mg/ml inj IV PRN ×2 (03:11→15:08)
[2021-01-15] MEDS: potassium Cl 40MEQ/250ML bag 250 ML IV PRN ×2 (03:49→22:14)
[2021-01-15] MEDS: LINACLOTIDE 72 MCG OGT SCH (08:00)
[2021-01-15] MEDS: dexmedetomidin/NS 400mcg/100ml 100 ML IV SCH ×2 (08:27→17:05)
[2021-01-15] MEDS ORDERED: magnesium 2GM in 50ml NS 50 ML IV ONE (08:50)
[2021-01-15] MEDS: enoxaparin 50mg/0.5ml (from 3ml vial) syringe SUBCUT SCH ×2 (09:00→20:04)
[2021-01-15] MEDS: nitroPRUSSIDE 0.2mg/mL in NS 100 ML IV SCH ×2 (09:10→20:40)
[2021-01-15] MEDS: cefazolin/dext.iso 2gm/50ml 50 ML IV SCH ×2 (09:48→20:04)
[2021-01-15] MEDS: niCARDipine-NS 40mg/200ml IVPB IV SCH ×4 (11:30→22:13)
[2021-01-15] MEDS: pantoprazole 40 MG vial IV SCH (12:38)
[2021-01-15] MEDS: morphine 4 MG/ML inj SYRINge IV PRN (15:08)
--- NOTE | 2021-01-15 18:30 | NUR ---
Patient in room ICU 2046. I have received report from Jorge Alberto KING and had the opportunity to ask questions and assume patient care.
[2021-01-15] MEDS ORDERED: diphenhydrAMINE 25mg capsule PO PRN (18:55)
[2021-01-15 19:51] LABS: BASOPHILS % (AUTO) 0.5 % (0-1); EOSINOPHILS % (AUTO) 0.8 % (0-6); HEMATOCRIT 31.2 % (35.0-45.0); HEMOGLOBIN 10.5 g/dl (12.0-16.0); LYMPHOCYTES # (AUTO) 0.5 X10'3 (1.1-4.8); LYMPHOCYTES % (AUTO) 7.8 % (21-51); MEAN CORPUSCULAR HEMOGLOBIN 32.9 PG (27.0-31.0); MEAN CORPUSCULAR HGB CONC 33.6 g/dL (33.0-36.5); MEAN CORPUSCULAR VOLUME 97.9 FL (78-98); MEAN PLATELET VOLUME 7.8 FL (7.4-10.4); MONOCYTES # (AUTO) 0.7 X10'3 (0-0.9); NEUTROPHILS # (AUTO) 4.8 X10'3 (1.8-7.7); NEUTROPHILS % (AUTO) 79.9 % (42-75); PLATELET COUNT 130 X10'3 (140-440); RED BLOOD COUNT 3.18 X10'6 (4.20-5.60); RED CELL DISTRIBUTION WIDTH 17.2 % (11.5-14.5)
[2021-01-15] MEDS: atorvastatin 10mg tablet OGT SCH (20:05)
[2021-01-15] MEDS: lisinopril 20mg tablet PO SCH (20:05)
[2021-01-15] MEDS: furosemide 20 MG/2 ML vial IV SCH (20:05)
[2021-01-15 20:06] LABS: ALANINE AMINOTRANSFERASE 10 U/L (12-78); ALBUMIN 2.5 G/DL (3.4-5.0); ALBUMIN/GLOBULIN RATIO 0.8 (1.1-1.5); ALKALINE PHOSPHATASE 77 IU/L (46-116); ANION GAP 10 (8-16); ASPARTATE AMINO TRANSFERASE 28 U/L (10-37); BILIRUBIN,TOTAL 0.7 MG/DL (0.1-1.0); BLOOD UREA NITROGEN 20 MG/DL (7-18); BUN/CREATININE RATIO 26.3 (6.6-38.0); CALCIUM 7.7 MG/DL (8.5-10.1); CHLORIDE 112 MMOL/L (99-107); CREATININE 0.76 MG/DL (0.40-0.90); GLUCOSE 132 MG/DL (70-104); MAGNESIUM 2.5 MG/DL (1.5-2.4); SODIUM 147 MMOL/L (135-145); TOTAL CARBON DIOXIDE 25.2 MMOL/L (24-32); TOTAL PROTEIN 5.8 G/DL (6.4-8.2); eGFR 74 ML/MIN
[2021-01-16] VITALS (23 sets, daily range): BP systolic 91–143; BP diastolic 44–85
[2021-01-16] MEDS: niCARDipine-NS 40mg/200ml IVPB IV SCH ×2 (00:38→03:37)
[2021-01-16] MEDS: morphine 4 MG/ML inj SYRINge IV PRN (01:28)
[2021-01-16] MEDS: dexmedetomidin/NS 400mcg/100ml 100 ML IV SCH (01:43)
[2021-01-16 03:09] LABS: BASOPHILS % (AUTO) 0.6 % (0-1); EOSINOPHILS # (AUTO) 0.1 X10'3 (0-0.9); EOSINOPHILS % (AUTO) 1.7 % (0-6); HEMATOCRIT 31.6 % (35.0-45.0); HEMOGLOBIN 10.7 g/dl (12.0-16.0); LYMPHOCYTES # (AUTO) 0.5 X10'3 (1.1-4.8); LYMPHOCYTES % (AUTO) 6.9 % (21-51); MEAN CORPUSCULAR HEMOGLOBIN 33.3 PG (27.0-31.0); MEAN CORPUSCULAR HGB CONC 33.9 g/dL (33.0-36.5); MEAN CORPUSCULAR VOLUME 98.1 FL (78-98); MEAN PLATELET VOLUME 7.9 FL (7.4-10.4); MONOCYTES # (AUTO) 0.7 X10'3 (0-0.9); MONOCYTES % (AUTO) 10.3 % (2-12); NEUTROPHILS # (AUTO) 5.4 X10'3 (1.8-7.7); NEUTROPHILS % (AUTO) 80.5 % (42-75); PLATELET COUNT 138 X10'3 (140-440); RED BLOOD COUNT 3.22 X10'6 (4.20-5.60); RED CELL DISTRIBUTION WIDTH 17.1 % (11.5-14.5); WHITE BLOOD COUNT 6.7 X10'3 (4.5-11.0)
[2021-01-16 03:21] LABS: ALANINE AMINOTRANSFERASE 11 U/L (12-78); ALBUMIN 2.6 G/DL (3.4-5.0); ALBUMIN/GLOBULIN RATIO 0.8 (1.1-1.5); ALKALINE PHOSPHATASE 77 IU/L (46-116); ANION GAP 8 (8-16); ASPARTATE AMINO TRANSFERASE 23 U/L (10-37); BILIRUBIN,TOTAL 0.7 MG/DL (0.1-1.0); BLOOD UREA NITROGEN 21 MG/DL (7-18); BUN/CREATININE RATIO 26.9 (6.6-38.0); CALCIUM 7.4 MG/DL (8.5-10.1); CHLORIDE 113 MMOL/L (99-107); CREATININE 0.78 MG/DL (0.40-0.90); GLUCOSE 114 MG/DL (70-104); MAGNESIUM 2.3 MG/DL (1.5-2.4); PHOSPHORUS 2.2 MG/DL (2.3-4.5); POTASSIUM 4.3 MMOL/L (3.5-5.1); SODIUM 147 MMOL/L (135-145); TOTAL CARBON DIOXIDE 25.8 MMOL/L (24-32); TOTAL PROTEIN 5.9 G/DL (6.4-8.2); eGFR 72 ML/MIN
[2021-01-16] MEDS: magnesium 2GM in 50ml NS 50 ML IV PRN (03:30)
[2021-01-16] MEDS: Insulin Reg/NS 100units/100mL 100 ML IV SCH (04:00)
[2021-01-16] MEDS: potassium Cl 40MEQ/250ML bag 250 ML IV PRN (05:29)
--- NOTE | 2021-01-16 06:22 | NUR ---
Problems reprioritized. Patient report given, questions answered & plan of care reviewed with Kim KING.
[2021-01-16] MEDS: lisinopril 20mg tablet PO SCH ×2 (07:55→19:53)
[2021-01-16] MEDS: pantoprazole 40 MG vial IV SCH (07:56)
[2021-01-16] MEDS: cefazolin/dext.iso 2gm/50ml 50 ML IV SCH ×2 (07:56→19:51)
[2021-01-16] MEDS: furosemide 20 MG/2 ML vial IV SCH ×2 (07:56→19:51)
[2021-01-16] MEDS: LINACLOTIDE 72 MCG OGT SCH (07:58)
[2021-01-16] MEDS: enoxaparin 50mg/0.5ml (from 3ml vial) syringe SUBCUT SCH ×2 (07:58→19:52)
[2021-01-16] MEDS ORDERED: [UNRECOGNIZED DRUG - OTHER] TOP PRN (08:55)
[2021-01-16 09:48] LABS: HEMOGLOBIN A1C 4.8 % (4.5-6.2)
[2021-01-16] MEDS: ondansetron/PF 4mg/2ml inj IV PRN (11:03)
[2021-01-16] MEDS: traMADol 50MG tablet PO PRN (11:03)
[2021-01-16] MEDS: cholecalciferol (vitamin D3) 1,000 unit (25mcg) tablet PO SCH ×2 (12:49→19:53)
--- NOTE | 2021-01-16 13:44 | NUR ---
Reassessment: Pt extubated 01/14 and TF was also stopped. Pt seen by DRY DRUG WORKER today and recommended SB6, pt w/ ~33% intake of first meal today. Per RN, pt requesting smoothie w/ breakfast and dinner, this has been d/w dietary. LBM 01/15. No nutrition intervention implemented at this time, will continue to monitor PO trends and make recommendations as appropriate. Rec: 1. Continue SB6 diet as tolerated per DRY DRUG WORKER/MD recs 2. Smoothies BID BD per pt preference 3. Routine bowel care 4. Weekly wts Addendum: 01/16/21 at [address] Amended: Links added.
[2021-01-16] MEDS: sodium chloride 0.45% 1,000 ML IV SCH (14:40)
[2021-01-16] MEDS: metoclopramide 5 mg/ml inj IV PRN (15:42)
[2021-01-16] MEDS: cyclobenzaprine 10mg tablet PO SCH (16:30)
--- NOTE | 2021-01-16 17:07 | NUR ---
Dr Dunbar ordered a PICC on 01-15 at 1845. Picc was not able to to be put in so late. I spoke with nursing 01/16 about putting the line into today, however, after speaking with nursing a central line was not indicated so I called Dr Dunbar and he also said that she did not require a picc. She already has an extended PIV (midline) in place but nursing wanted another IV due to incompatibility of medications. Attempted 3 times for extended PIV (midline) and was unable to place. Patient refused additional attempts "until in the morning". Nursing notified. Addendum: 01/16/21 at 1720 by Betsy Sandoval RN Amended: Links added.
--- NOTE | 2021-01-16 18:00 | NUR ---
Patient in room ICU 2046. I have received report from Sophia and had the opportunity to ask questions and assume patient care.
[2021-01-16] MEDS: lactobacillus rhamnosus 10,000 MMU CELLS/CAPSULE PO SCH (19:53)
[2021-01-16] MEDS: atorvastatin 10mg tablet OGT SCH (19:54)
--- NOTE | 2021-01-16 21:46 | NUR ---
Pt refusing to take night time medication, pt states that she is tired of filling her body full of crap and wants to sleep tomorrow and not worry about medications making her feel like crap. I asked if she would like to get cleaned up tonight she said no. I will attempt early in the morning to bathe pt. Pt vs 98/56, 83, 19. Pt seems tired AOX4.
[2021-01-17] VITALS (24 sets, daily range): BP systolic 98–148; BP diastolic 46–95
[2021-01-17 04:27] LABS: BASOPHILS % (AUTO) 0.5 % (0-1); EOSINOPHILS # (AUTO) 0.3 X10'3 (0-0.9); EOSINOPHILS % (AUTO) 3.9 % (0-6); HEMATOCRIT 31.5 % (35.0-45.0); HEMOGLOBIN 10.8 g/dl (12.0-16.0); LYMPHOCYTES # (AUTO) 0.7 X10'3 (1.1-4.8); LYMPHOCYTES % (AUTO) 10.3 % (21-51); MEAN CORPUSCULAR HEMOGLOBIN 33.3 PG (27.0-31.0); MEAN CORPUSCULAR HGB CONC 34.2 g/dL (33.0-36.5); MEAN CORPUSCULAR VOLUME 97.2 FL (78-98); MEAN PLATELET VOLUME 7.8 FL (7.4-10.4); MONOCYTES # (AUTO) 0.8 X10'3 (0-0.9); MONOCYTES % (AUTO) 11.1 % (2-12); NEUTROPHILS # (AUTO) 5.3 X10'3 (1.8-7.7); NEUTROPHILS % (AUTO) 74.2 % (42-75); PLATELET COUNT 161 X10'3 (140-440); RED BLOOD COUNT 3.24 X10'6 (4.20-5.60); RED CELL DISTRIBUTION WIDTH 16.5 % (11.5-14.5); WHITE BLOOD COUNT 7.1 X10'3 (4.5-11.0)
[2021-01-17 04:41] LABS: ALBUMIN 2.4 G/DL (3.4-5.0); ANION GAP 7 (8-16); BLOOD UREA NITROGEN 22 MG/DL (7-18); BUN/CREATININE RATIO 30.1 (6.6-38.0); CALCIUM 7.5 MG/DL (8.5-10.1); CHLORIDE 108 MMOL/L (99-107); CREATININE 0.73 MG/DL (0.40-0.90); GLUCOSE 99 MG/DL (70-104); MAGNESIUM 2.3 MG/DL (1.5-2.4); PHOSPHORUS 2.2 MG/DL (2.3-4.5); POTASSIUM 4.2 MMOL/L (3.5-5.1); PREALBUMIN 12.8 MG/DL (19-36); SODIUM 142 MMOL/L (135-145); TOTAL CARBON DIOXIDE 27.4 MMOL/L (24-32); eGFR 78 ML/MIN
[2021-01-17] MEDS: traMADol 50MG tablet PO PRN ×2 (04:43→20:16)
--- NOTE | 2021-01-17 06:15 | NUR ---
Patient in room ICU 2046. I have received report from Emily KING and had the opportunity to ask questions and assume patient care.
--- NOTE | 2021-01-17 06:33 | NUR ---
Dr. Rico in to assess patient at bedside
--- NOTE | 2021-01-17 06:44 | NUR ---
Problems reprioritized. Patient report given, questions answered & plan of care reviewed with Beth.
[2021-01-17] MEDS: LINACLOTIDE 72 MCG OGT SCH (08:00)
[2021-01-17] MEDS: cyclobenzaprine 10mg tablet PO SCH ×4 (08:00→20:46)
[2021-01-17] MEDS: valacyclovir 500mg tablet PO SCH (08:00)
[2021-01-17] MEDS ORDERED: UBIDECARENONE 100 MG PO SCH (08:00)
[2021-01-17] MEDS ORDERED: LEVOCARNITINE PO SCH (08:00)
[2021-01-17] MEDS: pantoprazole 40 MG vial IV SCH (08:07)
[2021-01-17] MEDS: cefazolin/dext.iso 2gm/50ml 50 ML IV SCH ×2 (08:07→20:15)
[2021-01-17] MEDS: furosemide 20 MG/2 ML vial IV SCH ×2 (08:07→20:16)
[2021-01-17] MEDS: enoxaparin 50mg/0.5ml (from 3ml vial) syringe SUBCUT SCH ×2 (08:11→20:17)
[2021-01-17] MEDS: gabapentin 300mg capsule PO SCH (08:12)
[2021-01-17] MEDS: lisinopril 20mg tablet PO SCH ×2 (08:13→20:16)
[2021-01-17] MEDS: lactobacillus rhamnosus 10,000 MMU CELLS/CAPSULE PO SCH ×2 (08:13→20:15)
[2021-01-17] MEDS: cholecalciferol (vitamin D3) 1,000 unit (25mcg) tablet PO SCH ×3 (08:13→20:17)
[2021-01-17] MEDS: metoprolol tartrate 25mg tablet PO SCH ×2 (09:36→20:15)
[2021-01-17] MEDS: niCARDipine-NS 40mg/200ml IVPB IV SCH ×2 (11:13→19:30)
--- NOTE | 2021-01-17 14:30 | NUR ---
Patient up to chair after working with physical therapy. Will stay up in chair and eat dinner then go back to bed. She is encouraged to increase her physical activity with PT and nursing to help build her strength.
--- NOTE | 2021-01-17 18:22 | NUR ---
Problems reprioritized. Patient report given, questions answered & plan of care reviewed with Mac RN.
[2021-01-17] MEDS: atorvastatin 10mg tablet OGT SCH (20:15)
[2021-01-18] VITALS (14 sets, daily range): BP systolic 82–163; BP diastolic 42–91
[2021-01-18 03:24] LABS: BASOPHILS # (AUTO) 0.1 X10'3 (0-0.2); EOSINOPHILS # (AUTO) 0.3 X10'3 (0-0.9); EOSINOPHILS % (AUTO) 5.2 % (0-6); HEMOGLOBIN 10.1 g/dl (12.0-16.0); LYMPHOCYTES % (AUTO) 18.8 % (21-51); MEAN CORPUSCULAR HEMOGLOBIN 33.3 PG (27.0-31.0); MEAN CORPUSCULAR HGB CONC 34.8 g/dL (33.0-36.5); MEAN CORPUSCULAR VOLUME 95.6 FL (78-98); MEAN PLATELET VOLUME 7.9 FL (7.4-10.4); MONOCYTES # (AUTO) 0.7 X10'3 (0-0.9); MONOCYTES % (AUTO) 13.2 % (2-12); NEUTROPHILS # (AUTO) 3.2 X10'3 (1.8-7.7); NEUTROPHILS % (AUTO) 61.8 % (42-75); PLATELET COUNT 138 X10'3 (140-440); RED BLOOD COUNT 3.03 X10'6 (4.20-5.60); RED CELL DISTRIBUTION WIDTH 16.3 % (11.5-14.5); WHITE BLOOD COUNT 5.2 X10'3 (4.5-11.0)
[2021-01-18] MEDS: niCARDipine-NS 40mg/200ml IVPB IV SCH (03:30)
[2021-01-18 03:40] LABS: ALANINE AMINOTRANSFERASE 12 U/L (12-78); ALBUMIN 2.4 G/DL (3.4-5.0); ALBUMIN/GLOBULIN RATIO 0.9 (1.1-1.5); ALKALINE PHOSPHATASE 69 IU/L (46-116); ANION GAP 4 (8-16); ASPARTATE AMINO TRANSFERASE 16 U/L (10-37); BILIRUBIN,TOTAL 0.5 MG/DL (0.1-1.0); BLOOD UREA NITROGEN 15 MG/DL (7-18); BUN/CREATININE RATIO 18.1 (6.6-38.0); CALCIUM 7.7 MG/DL (8.5-10.1); CHLORIDE 108 MMOL/L (99-107); CREATININE 0.83 MG/DL (0.40-0.90); GLUCOSE 114 MG/DL (70-104); SODIUM 145 MMOL/L (135-145); TOTAL CARBON DIOXIDE 33.5 MMOL/L (24-32); TOTAL PROTEIN 5.1 G/DL (6.4-8.2); TRIGLYCERIDES 79 MG/DL (20-135); eGFR 67 ML/MIN
[2021-01-18] MEDS: valacyclovir 500mg tablet PO SCH (08:00)
[2021-01-18] MEDS: LINACLOTIDE 72 MCG OGT SCH (08:00)
[2021-01-18] MEDS: cyclobenzaprine 10mg tablet PO SCH ×2 (08:00→17:54)
[2021-01-18] MEDS: lactobacillus rhamnosus 10,000 MMU CELLS/CAPSULE PO SCH ×2 (08:29→20:38)
[2021-01-18] MEDS: furosemide 20 MG/2 ML vial IV SCH (08:29)
[2021-01-18] MEDS: cholecalciferol (vitamin D3) 1,000 unit (25mcg) tablet PO SCH ×3 (08:30→20:38)
[2021-01-18] MEDS: gabapentin 300mg capsule PO SCH (08:30)
[2021-01-18] MEDS: lisinopril 20mg tablet PO SCH ×2 (08:31→20:40)
[2021-01-18] MEDS: metoprolol tartrate 25mg tablet PO SCH ×2 (08:31→20:38)
[2021-01-18] MEDS: traMADol 50MG tablet PO PRN ×2 (08:35→15:12)
[2021-01-18] MEDS: enoxaparin 50mg/0.5ml (from 3ml vial) syringe SUBCUT SCH ×2 (08:40→20:40)
[2021-01-18] MEDS: cefazolin/dext.iso 2gm/50ml 50 ML IV SCH (08:40)
[2021-01-18] MEDS: pantoprazole 40 MG vial IV SCH (08:54)
[2021-01-18] MEDS ORDERED: potassium Cl 20 mEq SR tablet PO PRN (09:50)
[2021-01-18] MEDS ORDERED: potassium CL 10mEq/100ml bag 100 ML IV PRN (09:50)
[2021-01-18] MEDS ORDERED: potassium Cl 40MEQ/250ML bag 250 ML IV PRN (09:50)
[2021-01-18] MEDS ORDERED: potassium Cl 20mEq/100mL bag 100 ML IV PRN (09:50)
[2021-01-18] MEDS ORDERED: magnesium 4gm in 100ml NS 100 ML IV PRN (09:50)
[2021-01-18] MEDS ORDERED: potassium Cl 40MEQ/1/2NS 520ml 520 ML IV PRN (09:50)
[2021-01-18] MEDS ORDERED: magnesium 2GM in 50ml NS 50 ML IV PRN (09:50)
[2021-01-18] MEDS ORDERED: COVID-19 VACC, MRNA(PFIZER)/PF--BNT162b2 syringe IMVAC ONE (10:00)
--- NOTE | 2021-01-18 11:22 | NUR ---
Nutrition Consult: Pt PO 75% past 3 of 4 meals since yesterday AM meeting estimated needs at this time. LBM 01/15 per EMR. Will follow for additional nutrition intervention needs. Addendum: 01/18/21 at [address] Amended: Links added.
--- NOTE | 2021-01-18 18:30 | NUR ---
Problems reprioritized. Patient report given, questions answered & plan of care reviewed with Elaine RN .
[2021-01-18] MEDS: magnesium Cl slow-release 64mg tablet PO SCH (20:00)
[2021-01-18] MEDS: furosemide 20MG tablet PO SCH (20:39)
[2021-01-18] MEDS: potassium Cl 20 mEq SR tablet PO SCH (20:39)
[2021-01-18] MEDS: atorvastatin 10mg tablet OGT SCH (20:40)
[2021-01-19 02:00] VITALS: BP 134/52
[2021-01-19] MEDS: traMADol 50MG tablet PO PRN ×2 (04:05→16:21)
[2021-01-19 06:00] VITALS: BP 115/34
[2021-01-19 07:14] LABS: BASOPHILS # (AUTO) 0.1 X10'3 (0-0.2); BASOPHILS % (AUTO) 1.3 % (0-1); EOSINOPHILS # (AUTO) 0.3 X10'3 (0-0.9); EOSINOPHILS % (AUTO) 5.4 % (0-6); HEMATOCRIT 32.1 % (35.0-45.0); HEMOGLOBIN 11.1 g/dl (12.0-16.0); LYMPHOCYTES # (AUTO) 0.8 X10'3 (1.1-4.8); LYMPHOCYTES % (AUTO) 14.3 % (21-51); MEAN CORPUSCULAR HEMOGLOBIN 33.3 PG (27.0-31.0); MEAN CORPUSCULAR HGB CONC 34.7 g/dL (33.0-36.5); MEAN CORPUSCULAR VOLUME 95.8 FL (78-98); MEAN PLATELET VOLUME 8.1 FL (7.4-10.4); MONOCYTES # (AUTO) 0.6 X10'3 (0-0.9); MONOCYTES % (AUTO) 11.2 % (2-12); NEUTROPHILS # (AUTO) 3.7 X10'3 (1.8-7.7); NEUTROPHILS % (AUTO) 67.8 % (42-75); PLATELET COUNT 139 X10'3 (140-440); RED BLOOD COUNT 3.35 X10'6 (4.20-5.60); RED CELL DISTRIBUTION WIDTH 16.2 % (11.5-14.5); WHITE BLOOD COUNT 5.4 X10'3 (4.5-11.0)
[2021-01-19 07:19] LABS: ALBUMIN 2.5 G/DL (3.4-5.0); ANION GAP 2 (8-16); BLOOD UREA NITROGEN 14 MG/DL (7-18); BUN/CREATININE RATIO 18.9 (6.6-38.0); CHLORIDE 108 MMOL/L (99-107); CREATININE 0.74 MG/DL (0.40-0.90); GLUCOSE 115 MG/DL (70-104); SODIUM 142 MMOL/L (135-145); TOTAL CARBON DIOXIDE 32.1 MMOL/L (24-32); eGFR 77 ML/MIN
[2021-01-19] MEDS: LINACLOTIDE 72 MCG OGT SCH (08:00)
[2021-01-19] MEDS: enoxaparin 50mg/0.5ml (from 3ml vial) syringe SUBCUT SCH ×2 (08:00→20:19)
[2021-01-19] MEDS: gabapentin 300mg capsule PO SCH (08:00)
[2021-01-19] MEDS: lactobacillus rhamnosus 10,000 MMU CELLS/CAPSULE PO SCH ×2 (08:41→20:20)
[2021-01-19] MEDS: cholecalciferol (vitamin D3) 1,000 unit (25mcg) tablet PO SCH ×3 (08:41→20:21)
[2021-01-19] MEDS: potassium Cl 20 mEq SR tablet PO SCH ×2 (08:42→20:19)
[2021-01-19] MEDS: lisinopril 20mg tablet PO SCH ×2 (08:42→20:00)
[2021-01-19] MEDS: metoprolol tartrate 25mg tablet PO SCH ×2 (08:42→20:00)
[2021-01-19] MEDS: magnesium Cl slow-release 64mg tablet PO SCH ×2 (08:42→20:20)
[2021-01-19] MEDS: furosemide 20MG tablet PO SCH ×2 (08:42→20:00)
[2021-01-19] MEDS: cyclobenzaprine 10mg tablet PO SCH ×4 (08:42→23:04)
[2021-01-19] MEDS: valacyclovir 500mg tablet PO SCH (08:43)
[2021-01-19] MEDS: pantoprazole 40mg Tablet.DR PO SCH (08:45)
[2021-01-19] MEDS: aspirin 325mg tablet, delayed-release (Ecotrin) PO SCH (08:45)
[2021-01-19 11:00] VITALS: BP 136/55
--- NOTE | 2021-01-19 12:00 | NUR ---
up in chair, tolerating well
[2021-01-19 15:00] VITALS: BP 118/54
[2021-01-19 18:00] VITALS: BP 97/53
--- NOTE | 2021-01-19 18:16 | NUR ---
Problems reprioritized. Patient report given, questions answered & plan of care reviewed with Elaine RN.
[2021-01-19] MEDS: atorvastatin 10mg tablet OGT SCH (20:20)
[2021-01-19 22:00] VITALS: BP 121/52
[2021-01-20 02:00] VITALS: BP 112/56
[2021-01-20 06:00] VITALS: BP 139/66
[2021-01-20 06:10] LABS: BASOPHILS # (AUTO) 0.1 X10'3 (0-0.2); BASOPHILS % (AUTO) 1.5 % (0-1); EOSINOPHILS # (AUTO) 0.2 X10'3 (0-0.9); EOSINOPHILS % (AUTO) 4.6 % (0-6); HEMATOCRIT 30.6 % (35.0-45.0); HEMOGLOBIN 10.6 g/dl (12.0-16.0); LYMPHOCYTES # (AUTO) 0.8 X10'3 (1.1-4.8); LYMPHOCYTES % (AUTO) 18.6 % (21-51); MEAN CORPUSCULAR HEMOGLOBIN 33.3 PG (27.0-31.0); MEAN CORPUSCULAR HGB CONC 34.5 g/dL (33.0-36.5); MEAN CORPUSCULAR VOLUME 96.3 FL (78-98); MEAN PLATELET VOLUME 8.4 FL (7.4-10.4); MONOCYTES # (AUTO) 0.5 X10'3 (0-0.9); MONOCYTES % (AUTO) 10.8 % (2-12); NEUTROPHILS # (AUTO) 2.9 X10'3 (1.8-7.7); NEUTROPHILS % (AUTO) 64.5 % (42-75); PLATELET COUNT 144 X10'3 (140-440); RED BLOOD COUNT 3.17 X10'6 (4.20-5.60); RED CELL DISTRIBUTION WIDTH 16.8 % (11.5-14.5); WHITE BLOOD COUNT 4.5 X10'3 (4.5-11.0)
[2021-01-20 06:23] LABS: ALBUMIN 2.7 G/DL (3.4-5.0); ANION GAP 5 (8-16); BLOOD UREA NITROGEN 16 MG/DL (7-18); BUN/CREATININE RATIO 20.5 (6.6-38.0); CALCIUM 8.1 MG/DL (8.5-10.1); CHLORIDE 104 MMOL/L (99-107); CREATININE 0.78 MG/DL (0.40-0.90); GLUCOSE 116 MG/DL (70-104); POTASSIUM 4.7 MMOL/L (3.5-5.1); SODIUM 141 MMOL/L (135-145); TOTAL CARBON DIOXIDE 32.4 MMOL/L (24-32); eGFR 72 ML/MIN
--- NOTE | 2021-01-20 07:00 | NUR ---
Patient in room PCU 3025. I have received report from CHRISTINE ALLEN, and had the opportunity to ask questions and assume patient care.
[2021-01-20] MEDS: furosemide 20MG tablet PO SCH ×2 (08:00→19:34)
[2021-01-20] MEDS: metoprolol tartrate 25mg tablet PO SCH ×2 (08:00→19:34)
[2021-01-20] MEDS: gabapentin 300mg capsule PO SCH (09:54)
[2021-01-20] MEDS: traMADol 50MG tablet PO PRN ×3 (09:55→16:04)
[2021-01-20] MEDS: cholecalciferol (vitamin D3) 1,000 unit (25mcg) tablet PO SCH ×3 (09:55→20:45)
[2021-01-20] MEDS: potassium Cl 20 mEq SR tablet PO SCH ×2 (09:56→19:33)
[2021-01-20] MEDS: lactobacillus rhamnosus 10,000 MMU CELLS/CAPSULE PO SCH ×2 (09:56→19:35)
[2021-01-20] MEDS: magnesium Cl slow-release 64mg tablet PO SCH ×2 (09:56→19:33)
[2021-01-20] MEDS: valacyclovir 500mg tablet PO SCH (09:57)
[2021-01-20] MEDS: aspirin 325mg tablet, delayed-release (Ecotrin) PO SCH (09:57)
[2021-01-20] MEDS: cyclobenzaprine 10mg tablet PO SCH ×3 (09:57→23:53)
[2021-01-20] MEDS: lisinopril 20mg tablet PO SCH ×2 (09:59→19:32)
[2021-01-20] MEDS: pantoprazole 40mg Tablet.DR PO SCH (10:00)
[2021-01-20] MEDS: enoxaparin 50mg/0.5ml (from 3ml vial) syringe SUBCUT SCH ×2 (10:25→19:35)
--- NOTE | 2021-01-20 10:43 | NUR ---
Reassessment: Pt continues w/ mostly 75% intake of meals on Heart Healthy/SB6 diet w/ additional smoothies BID meeting needs. LBM w/ only PRN Catie given 01/16, pt may benefit from routine bowel care. No new nutrition intervention implemented, will continue to monitor. Rec: 1. Continue SB6 diet as tolerated per MANAGER FLEET/MD recs 2. Smoothies BID BD per pt preference 3. Routine bowel care 4. Weekly wts Addendum: 01/20/21 at [address] Amended: Links added.
[2021-01-20 11:00] VITALS: BP 145/82
[2021-01-20 18:00] VITALS: BP 110/50
--- NOTE | 2021-01-20 18:27 | NUR ---
Problems reprioritized. Patient report given, questions answered & plan of care reviewed with CHRISTINE LEGER.
[2021-01-20] MEDS: atorvastatin 10mg tablet OGT SCH (20:45)
[2021-01-20] MEDS: HYDROcodone/acetaminophen 10/325mg tab PO PRN (20:46)
[2021-01-20 22:00] VITALS: BP 121/65
[2021-01-21 02:00] VITALS: BP 142/72
[2021-01-21 06:00] VITALS: BP 107/50
--- NOTE | 2021-01-21 06:11 | NUR ---
Problems reprioritized. Patient report given, questions answered & plan of care reviewed with Flower KING.
--- NOTE | 2021-01-21 06:16 | NUR ---
Patient in room PCU 3025. I have received report from CHRISTINE HOOD, and had the opportunity to ask questions and assume patient care.
--- NOTE | 2021-01-21 06:41 | NUR ---
Patient in room U 3025. I have received report from CHRISTINE LEGER, and had the opportunity to ask questions and assume patient care. Addendum: 01/21/21 at 0643 by [place] RN WRONG PATIENT, PLEASE DISREGARD NOTE, REPORT RECEIVED FROM CHRISTINE HOOD.
[2021-01-21 06:59] LABS: BASOPHILS # (AUTO) 0.1 X10'3 (0-0.2); BASOPHILS % (AUTO) 1.3 % (0-1); EOSINOPHILS # (AUTO) 0.2 X10'3 (0-0.9); EOSINOPHILS % (AUTO) 5.3 % (0-6); HEMATOCRIT 30.7 % (35.0-45.0); HEMOGLOBIN 10.4 g/dl (12.0-16.0); LYMPHOCYTES # (AUTO) 0.8 X10'3 (1.1-4.8); LYMPHOCYTES % (AUTO) 17.1 % (21-51); MEAN CORPUSCULAR HEMOGLOBIN 32.8 PG (27.0-31.0); MEAN CORPUSCULAR HGB CONC 33.8 g/dL (33.0-36.5); MEAN CORPUSCULAR VOLUME 97.1 FL (78-98); MEAN PLATELET VOLUME 8.3 FL (7.4-10.4); MONOCYTES # (AUTO) 0.5 X10'3 (0-0.9); MONOCYTES % (AUTO) 10.2 % (2-12); NEUTROPHILS # (AUTO) 3.1 X10'3 (1.8-7.7); NEUTROPHILS % (AUTO) 66.1 % (42-75); PLATELET COUNT 160 X10'3 (140-440); RED BLOOD COUNT 3.16 X10'6 (4.20-5.60); RED CELL DISTRIBUTION WIDTH 16.6 % (11.5-14.5); WHITE BLOOD COUNT 4.7 X10'3 (4.5-11.0)
[2021-01-21 07:11] LABS: ALBUMIN 2.7 G/DL (3.4-5.0); ANION GAP 3 (8-16); BLOOD UREA NITROGEN 17 MG/DL (7-18); CALCIUM 8.5 MG/DL (8.5-10.1); CHLORIDE 106 MMOL/L (99-107); CREATININE 0.85 MG/DL (0.40-0.90); GLUCOSE 95 MG/DL (70-104); POTASSIUM 4.7 MMOL/L (3.5-5.1); PREALBUMIN 16.9 MG/DL (19-36); SODIUM 141 MMOL/L (135-145); eGFR 65 ML/MIN
[2021-01-21] MEDS: cyclobenzaprine 10mg tablet PO SCH ×2 (08:00→08:14)
[2021-01-21] MEDS: cholecalciferol (vitamin D3) 1,000 unit (25mcg) tablet PO SCH ×2 (08:12→13:22)
[2021-01-21] MEDS: aspirin 325mg tablet, delayed-release (Ecotrin) PO SCH (08:13)
[2021-01-21] MEDS: lactobacillus rhamnosus 10,000 MMU CELLS/CAPSULE PO SCH (08:13)
[2021-01-21] MEDS: potassium Cl 20 mEq SR tablet PO SCH (08:13)
[2021-01-21] MEDS: valacyclovir 500mg tablet PO SCH (08:14)
[2021-01-21] MEDS: furosemide 20MG tablet PO SCH (08:14)
[2021-01-21] MEDS: metoprolol tartrate 25mg tablet PO SCH (08:14)
[2021-01-21] MEDS: lisinopril 20mg tablet PO SCH (08:15)
[2021-01-21] MEDS: gabapentin 300mg capsule PO SCH (08:15)
[2021-01-21] MEDS: magnesium Cl slow-release 64mg tablet PO SCH (08:15)
[2021-01-21] MEDS: pantoprazole 40mg Tablet.DR PO SCH (08:15)
[2021-01-21] MEDS: enoxaparin 50mg/0.5ml (from 3ml vial) syringe SUBCUT SCH (08:17)
[2021-01-21 11:00] VITALS: BP 84/47
[2021-01-21] MEDS ORDERED: enoxaparin 50mg/0.5ml (from 3ml vial) syringe SUBCUT SCH (12:03)
--- NOTE | 2021-01-21 14:50 | NUR ---
PT STABLE FOR TRANSFER PER MD. BELONGINGS GATHERED AND BAGGED FOR PT, MEDICATIONS RETRIEVED FROM PHARMACY. HAND OFF GIVEN TO CHRISTINE BELLO. PT'S SON LATHA MIR NOTIFIED OF MOVE. PT TRANSFERRED TO [facility] BY AMBULANCE SERVICE. TAVRS CARD AND COVID 19 VACCINATION RETURNED TO PT AND PT ENCOURAGED TO PLACE SAID PAPERS IN HER WALLET.
== END 2021-01-21 15:03 | DRG 266 ==
LOC: PAS 07:25 → PAS IN 07:30 → UNDOADMIN 07:30 → EDSTATUS 10:00 → PAS IN 11:26 → ICU 2S 14:50 → PAS IN 14:50 → PCU 3S 01-18 12:53
PROVIDERS: ADMIT Internal Medicine Cardiovascular Disease; ATTEND Thoracic Surgery (Cardiothoracic Vascular Surgery)
PROC: B24BZZ4 Ultrasonography of Heart with Aorta, Transesophageal (ICD-10-PCS; 2021-01-10)
PROC: B41D1ZZ Fluoroscopy of Aorta and Bilateral Lower Extremity Arteries using Low Osmolar Contrast (ICD-10-PCS; 2021-01-10)
PROC: 0W9D30Z Drainage of Pericardial Cavity with Drainage Device, Percutaneous Approach (ICD-10-PCS; 2021-01-10)
PROC: 30233M1 Transfusion of Nonautologous Plasma Cryoprecipitate into Peripheral Vein, Percutaneous Approach (ICD-10-PCS; 2021-01-10)
PROC: 30233N1 Transfusion of Nonautologous Red Blood Cells into Peripheral Vein, Percutaneous Approach (ICD-10-PCS; 2021-01-10)
PROC: 30233R1 Transfusion of Nonautologous Platelets into Peripheral Vein, Percutaneous Approach (ICD-10-PCS; 2021-01-10)
PROC: 02RF38Z Replacement of Aortic Valve with Zooplastic Tissue, Percutaneous Approach (ICD-10-PCS; principal; 2021-01-10 11:49)
PROC: B32T1ZZ Computerized Tomography (CT Scan) of Left Pulmonary Artery using Low Osmolar Contrast (ICD-10-PCS; 2021-01-11)
PROC: B3201ZZ Computerized Tomography (CT Scan) of Thoracic Aorta using Low Osmolar Contrast (ICD-10-PCS; 2021-01-11)
PROC: B32S1ZZ Computerized Tomography (CT Scan) of Right Pulmonary Artery using Low Osmolar Contrast (ICD-10-PCS; 2021-01-11)
PROC: B4201ZZ Computerized Tomography (CT Scan) of Abdominal Aorta using Low Osmolar Contrast (ICD-10-PCS; 2021-01-11)
PROC: B4241ZZ Computerized Tomography (CT Scan) of Superior Mesenteric Artery using Low Osmolar Contrast (ICD-10-PCS; 2021-01-11)
PROC: B4281ZZ Computerized Tomography (CT Scan) of Bilateral Renal Arteries using Low Osmolar Contrast (ICD-10-PCS; 2021-01-11)
PROC: B42C1ZZ Computerized Tomography (CT Scan) of Pelvic Arteries using Low Osmolar Contrast (ICD-10-PCS; 2021-01-11)
PROC: B42H1ZZ Computerized Tomography (CT Scan) of Bilateral Lower Extremity Arteries using Low Osmolar Contrast (ICD-10-PCS; 2021-01-11)
PROC: B4211ZZ Computerized Tomography (CT Scan) of Celiac Artery using Low Osmolar Contrast (ICD-10-PCS; 2021-01-11)
PROC: 02HV33Z Insertion of Infusion Device into Superior Vena Cava, Percutaneous Approach (ICD-10-PCS; 2021-01-11)
PROC: B548ZZA Ultrasonography of Superior Vena Cava, Guidance (ICD-10-PCS; 2021-01-11)
PROC: 0W9B3ZZ Drainage of Left Pleural Cavity, Percutaneous Approach (ICD-10-PCS; 2021-01-14)
PROC: 0W993ZZ Drainage of Right Pleural Cavity, Percutaneous Approach (ICD-10-PCS; 2021-01-14)
PROC: XW023U6 Introduction of COVID-19 Vaccine into Muscle, Percutaneous Approach, New Technology Group 6 (ICD-10-PCS; 2021-01-18)
DX: I35.0 Nonrheumatic aortic (valve) stenosis (principal); Z00.6 Encounter for examination for normal comparison and control in clinical research program; I50.23 Acute on chronic systolic (congestive) heart failure; I71.00 Dissection of unspecified site of aorta; I31.3 Pericardial effusion (noninflammatory); I42.8 Other cardiomyopathies; J91.8 Pleural effusion in other conditions classified elsewhere; T82.223A Leakage of biological heart valve graft, initial encounter; Z68.42 Body mass index [BMI] 45.0-49.9, adult; I11.0 Hypertensive heart disease with heart failure; Z20.822 Contact with and (suspected) exposure to COVID-19; E66.01 Morbid (severe) obesity due to excess calories; R11.2 Nausea with vomiting, unspecified; Z23 Encounter for immunization; Z99.81 Dependence on supplemental oxygen; Z78.1 Physical restraint status; Y83.8 Other surgical procedures as the cause of abnormal reaction of the patient, or of later complication, without mention of misadventure at the time of the procedure; Y92.230 Patient room in hospital as the place of occurrence of the external cause
CPT/HCPCS: 0001A; 32555; 33016; 33361; 36415; 36430; 36600; 71045; 71046; 71275; 74018; 74175; 76376; 76604; 80048; 80053; 81003; 82803; 82948; 83036; 83735; 84100; 84132; 84134; 84478; 85008; 85018; 85025; 85347; 85384; 85610; 85730; 86870; 86885; 86900; 86901; 86902; 86920; 86922; 87081; 87635; 91300; 92508; 92616; 93005; 93308; 93355; 94002; 94003; 94640; 94667; 94668; 94760; 94799; 97110; 97161; 97530; 97535; A4618; A6258; A6449; C1756; C1760; C1769; C1894; C9113; G0378; J0690; J1644; J1650; J1815; J1940; J2001; J2250; J2270; J2370; J2405; J2704; J2720; J2765; J3010; J3370; J3475; J3480; J3490; J7040; J7050; J7060; J7120; P9012; P9016; P9035; Q0163; Q9967; U0003; U0005

== ENCOUNTER 2021-02-21 14:12 | Outpatient (CLI) | payer MEDICARE, MEDICAID ==
[~2021-02-21 14:12] MED LIST changes: -DOCUMENT DATE & TIME OF BETA-BLOCKER PO ONE; -aspirin 325mg tablet PO ONE; -ceFAZolin 2gm in dextrose, iso 50 ML IV ONE; -famotidine 20mg tablet PO ONE; -ondansetron/PF 4mg/2ml inj IV PRN; -phenylephrine inj 50 MG in normal saline 250ml IV soln 245 ML IV SCH; -protamine sulfate 10mg/ml inj. ONE; -ringers solution, lacted 1,000 ML IV SCH; -vancomycin 1,500 MG in NS 300ml IV soln IV ONE
[2021-02-21 18:12] VITALS: BP 138/47
--- NOTE | 2021-02-21 18:14 | NUR ---
Patient was seen today for TAVR follow-up with Dr. Arnett and Dr. Rico. KCQ12 completed. Walk test not completed. Vital signs measured. Echo and EKG reviewed with patient along with current condition of patients symptoms.
== END 2021-02-21 23:59 | disposition home or self-care (01) ==
LOC: CARD DIAG 14:12
PROVIDERS: ATTEND Internal Medicine Cardiovascular Disease
DX: I34.0 Nonrheumatic mitral (valve) insufficiency (principal); I44.7 Left bundle-branch block, unspecified; Z95.2 Presence of prosthetic heart valve; Z48.812 Encounter for surgical aftercare following surgery on the circulatory system
CPT/HCPCS: 93005; 93306

== ENCOUNTER 2021-05-22 22:05 | Observation (INO) | payer MEDICARE, MEDICAID ==
[~2021-05-22] VITALS: Ht 157.5 cm; Wt 110.0 kg
--- NOTE | 2021-05-22 22:19 | NUR ---
PT HAS NITROGLYCERIN PATCH ON. PT REPORTS SHE APPLIES IT DAILY IN THE AM FOR HER CHF.
[2021-05-22 23:01] LABS: BASOPHILS % (AUTO) 0.3 % (0-1); EOSINOPHILS # (AUTO) 0.1 X10'3 (0-0.9); EOSINOPHILS % (AUTO) 1.1 % (0-6); HEMATOCRIT 32.9 % (35.0-45.0); HEMOGLOBIN 11.2 g/dl (12.0-16.0); LYMPHOCYTES # (AUTO) 0.6 X10'3 (1.1-4.8); LYMPHOCYTES % (AUTO) 11.6 % (21-51); MEAN CORPUSCULAR HEMOGLOBIN 33.6 PG (27.0-31.0); MEAN CORPUSCULAR VOLUME 98.9 FL (78-98); MEAN PLATELET VOLUME 7.9 FL (7.4-10.4); MONOCYTES # (AUTO) 0.5 X10'3 (0-0.9); MONOCYTES % (AUTO) 8.9 % (2-12); NEUTROPHILS # (AUTO) 4.2 X10'3 (1.8-7.7); NEUTROPHILS % (AUTO) 78.1 % (42-75); PLATELET COUNT 100 X10'3 (140-440); RED BLOOD COUNT 3.33 X10'6 (4.20-5.60); RED CELL DISTRIBUTION WIDTH 14.4 % (11.5-14.5); WHITE BLOOD COUNT 5.4 X10'3 (4.5-11.0)
[2021-05-22] MEDS ORDERED: aspirin 325mg tablet PO ONE (23:10)
[2021-05-22 23:13] LABS: APTT 30 SECONDS (22-32)
[2021-05-22 23:30] LABS: ALANINE AMINOTRANSFERASE 14 U/L (12-78); ALBUMIN 3.4 G/DL (3.4-5.0); ALBUMIN/GLOBULIN RATIO 1.2 (1.1-1.5); ALKALINE PHOSPHATASE 81 IU/L (46-116); ANION GAP 5 (8-16); ASPARTATE AMINO TRANSFERASE 13 U/L (10-37); BILIRUBIN,TOTAL 0.5 MG/DL (0.1-1.0); BLOOD UREA NITROGEN 20 MG/DL (7-18); BUN/CREATININE RATIO 26.7 (6.6-38.0); CALCIUM 8.6 MG/DL (8.5-10.1); CHLORIDE 111 MMOL/L (99-107); CREATININE 0.75 MG/DL (0.40-0.90); GLUCOSE 109 MG/DL (70-104); POTASSIUM 3.9 MMOL/L (3.5-5.1); SODIUM 142 MMOL/L (135-145); TOTAL CARBON DIOXIDE 25.7 MMOL/L (24-32); TOTAL PROTEIN 6.3 G/DL (6.4-8.2); eGFR 75 ML/MIN
[2021-05-23] MEDS ORDERED: PERFLUTREN PROTEIN-A MICROSPHR (Optison) 0.22 MG/ML 3ML VIAL IV PRN (00:40)
[2021-05-23] MEDS: normal saline 1000ml 1,000 ML IV SCH ×2 (00:46→15:31)
[2021-05-23 01:14] LABS: HEMOGLOBIN A1C 5.1 % (4.5-6.2)
--- NOTE | 2021-05-23 04:13 | NUR ---
REMOVED NITROGLYCERIN PATCH PT REPORTED THAT SHE USUALLY TAKES IT OFF AT NIGHT BEFORE SHE GOES TO BED.
--- NOTE | 2021-05-23 04:14 | NUR ---
PT LIVES WITH HER SON, LATHA. HIS PHONE NUMBER IS [phone]
[2021-05-23 08:00] VITALS: BP 132/60
[2021-05-23] MEDS: aspirin 81mg, enteric-coated 1 TAB TABLET.DR PO SCH (10:50)
[2021-05-23 11:00] VITALS: BP 143/56
[2021-05-23] MEDS ORDERED: iohexol 350MG/ML 100ml bottle IV ONE (11:32)
[2021-05-23 12:13] LABS: ALANINE AMINOTRANSFERASE 10 U/L (12-78); ALBUMIN 3.4 G/DL (3.4-5.0); ALKALINE PHOSPHATASE 82 IU/L (46-116); ANION GAP 9 (8-16); ASPARTATE AMINO TRANSFERASE 17 U/L (10-37); BILIRUBIN,TOTAL 0.6 MG/DL (0.1-1.0); BLOOD UREA NITROGEN 19 MG/DL (7-18); BUN/CREATININE RATIO 27.9 (6.6-38.0); CALCIUM 8.5 MG/DL (8.5-10.1); CHLORIDE 111 MMOL/L (99-107); CHOL/HDL RATIO 2.4 (0.00-4.99); CHOLESTEROL 152 MG/DL (0-200); CREATININE 0.68 MG/DL (0.40-0.90); GLUCOSE 76 MG/DL (70-104); HDL CHOLESTEROL 64 MG/DL (35-60); LDL CHOLESTEROL 83 MG/DL (50-100); POTASSIUM 4.1 MMOL/L (3.5-5.1); SODIUM 145 MMOL/L (135-145); TOTAL CARBON DIOXIDE 24.6 MMOL/L (24-32); TOTAL PROTEIN 6.9 G/DL (6.4-8.2); TRIGLYCERIDES 58 MG/DL (20-135); eGFR 84 ML/MIN
[2021-05-23] MEDS: ceFAZolin/D5W- 1GM premix 50 ML IV SCH ×2 (14:14→16:00)
[2021-05-23] MEDS ORDERED: CEPH-585 PO (14:29)
[2021-05-23] MEDS ORDERED: ZAR2.5T PO (14:31)
[2021-05-23 16:00] VITALS: BP 143/67
--- NOTE | 2021-05-23 16:20 | NUR ---
Pharmacist notified on medication dose to closed to administer. Ancef 1600 did not administered d/t dose to close, last one administered at 1414.
[2021-05-23] MEDS: acetaminophen w/codeine (30MG) #3 tablet PO PRN ×2 (16:33→22:13)
[2021-05-23 18:00] VITALS: BP 157/46
--- NOTE | 2021-05-23 18:17 | NUR ---
Problems reprioritized. Patient report given, questions answered & plan of care reviewed with Ni .
[2021-05-23 20:00] VITALS: BP 136/62
[2021-05-23] MEDS ORDERED: dicyclomine 10 MG capsule PO ONE (20:15)
[2021-05-23] MEDS: apixaban 5mg tablet PO SCH (20:39)
[2021-05-23 22:00] VITALS: BP 106/84
[2021-05-24] MEDS: ceFAZolin/D5W- 1GM premix 50 ML IV SCH ×2 (00:03→09:30)
[2021-05-24 02:00] VITALS: BP 152/73
[2021-05-24] MEDS: normal saline 1000ml 1,000 ML IV SCH (03:58)
[2021-05-24] MEDS: acetaminophen w/codeine (30MG) #3 tablet PO PRN ×2 (04:37→09:30)
[2021-05-24 06:00] VITALS: BP 164/72
--- NOTE | 2021-05-24 06:30 | NUR ---
Patient in room PCU 3011. I have received report from CHRISTINE Henry and had the opportunity to ask questions and assume patient care.
[2021-05-24 08:00] VITALS: BP 136/62
[2021-05-24] MEDS: apixaban 5mg tablet PO SCH (08:00)
[2021-05-24] MEDS: aspirin 81mg, enteric-coated 1 TAB TABLET.DR PO SCH (08:00)
[2021-05-24 08:01] LABS: CHOL/HDL RATIO 2.6 (0.00-4.99); CHOLESTEROL 137 MG/DL (0-200); HDL CHOLESTEROL 53 MG/DL (35-60); LDL CHOLESTEROL 75 MG/DL (50-100); TRIGLYCERIDES 58 MG/DL (20-135)
[2021-05-24 12:00] VITALS: BP 150/55
--- NOTE | 2021-05-24 12:42 | NUR ---
Two IV's removed both intact. Went over patient discharge intructions. All medications we went over and answered all questions. Patient wheeled down and her son picked her up.
== END 2021-05-24 12:40 | disposition home or self-care (01) ==
LOC: ER 22:06 → ED HOLD 05-23 00:37 → UNDOADMOB 05-23 00:37 → ED HOLD 05-23 00:40 → PCU 3S 05-23 08:54 → ED HOLD 05-23 08:54
PROVIDERS: ADMIT Internal Medicine; ATTEND Family Medicine
DX: G45.9 Transient cerebral ischemic attack, unspecified (principal); L03.115 Cellulitis of right lower limb; L03.116 Cellulitis of left lower limb; I10 Essential (primary) hypertension; W55.03XA Scratched by cat, initial encounter; Y93.89 Activity, other specified; Y92.89 Other specified places as the place of occurrence of the external cause; Z95.2 Presence of prosthetic heart valve; Z87.19 Personal history of other diseases of the digestive system; Z79.899 Other long term (current) drug therapy
CPT/HCPCS: 36415; 70450; 70496; 70498; 70551; 71045; 80053; 80061; 82948; 83036; 85025; 85610; 85730; 92508; 92616; 93005; 93306; 93880; 96361; 96365; 96366; 97116; 97161; 97530; 99285; G0378; J0690; J7030; Q9967